=== PATIENT | male | born 1945 | race Caucasian/White ===

== ENCOUNTER 2021-11-29 03:55 | Inpatient (IN) | payer MEDICARE ==
[2021-11-29] VITALS (8 sets, daily range): BP systolic 71–111; BP diastolic 42–57
[~2021-11-29] VITALS: Ht 177.8 cm; Wt 86.9 kg
[2021-11-29] MEDS ORDERED: IV NORMAL SALINE 1000ML BAG 1,000 ML IV ONE ×2 (05:30→10:00)
[2021-11-29] MEDS ORDERED: DEXTROSE 50% 25 GM / 50ML DISP.SYRIN. IV ONE (05:30)
[2021-11-29] MEDS ORDERED: IV DEXTROSE 5% 250 ML BAG. IV PRN (05:45)
[2021-11-29] MEDS ORDERED: DEXTROSE 50% 25 GM / 50ML DISP.SYRIN. IV PRN (05:45)
[2021-11-29 07:46] LABS: BASO # 0.1 x10^3/uL (0.0-0.2); BASO % 1 % (0-3); EOS # 0.2 x10^3/uL (0.0-0.7); EOS % 2 % (0-3); HEMATOCRIT 28.2 % (39.0-53.0); HEMOGLOBIN 9.2 g/dL (13.0-17.5); LYMPH # 0.8 x10^3/uL (1.0-4.8); LYMPH % 8 % (24-48); MEAN CORPUSCULAR HEMOGLOBIN 33 pg (25-35); MEAN CORPUSCULAR HGB CONC 32 g/dL (31-37); MEAN CORPUSCULAR VOLUME 102 fL (79-100); MONO # 0.6 x10^3/uL (0.0-1.1); MONO % 6 % (0-9); NEUT # 7.6 x10^3/uL (1.8-7.7); NEUT % 83 % (31-73); PLATELET COUNT 204 x10^3/uL (140-400); RED BLOOD COUNT 2.76 x10^6/uL (4.30-5.70); RED CELL DISTRIBUTION WIDTH 13.6 % (11.5-14.5); WHITE BLOOD COUNT 9.2 x10^3/uL (4.0-11.0)
[2021-11-29 08:08] LABS: ALBUMIN 2.5 g/dL (3.4-5.0); ALBUMIN/GLOBULIN RATIO 0.9 (1.0-1.7); CALCIUM 7.9 mg/dL (8.5-10.1); CREATININE 3.2 mg/dL (0.7-1.3); POTASSIUM 4.6 mmol/L (3.5-5.1); TOTAL BILIRUBIN 0.2 mg/dL (0.2-1.0); TOTAL PROTEIN 5.2 g/dL (6.4-8.2)
--- NOTE | 2021-11-29 09:25 | PDOC2 ---
CONSULT Date of Consult Date of Consult DATE: 11/29/21 TIME: 09:25 Reason for Consult Reason for Consult: left hip fracture Referring Physician Referring Physician: Charlie Identification/Chief Complaint Chief Complaint left hip pain after a fall Source Source: Caregiver, Chart review, Patient History of Present Illness Reason for Visit: This 76-year-old man fell at home and was brought to [facility] emergency room. CT scan showed a hip fracture he was transferred to [facility] for further care. He is on Eliquis and took his last dose Saturday night about 5 or 6 pm. Surgery is generally postponed for at least 48 hours after last dose of Eliquis, and his daughter said they are familiar with that protocol because it has been held for prior surgeries. He is reasonably comfortable now, holding still in bed and with pain medications. He normally uses a wheelchair at home, and sometimes "cruises" along the halls in his home where the wheelchair will not go. He has multiple reasons that he has difficulty walking. 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 He had knee surgery in [place] and he does not think there is any retained hardware. He had a right ankle that I believe was injured and now has severe arthritis and I believe also has hardware from surgery. He has diabetic neuropathy with severe loss of sensation and it also makes it difficult for him to walk. He may have some neuropathy related to exposures in the . He also had bladder cancer and has had surgical treatment. He has chronic severe kidney insufficiency but absolutely refuses any dialysis. He is nearing the point where dialysis would otherwise be recommended. He has type 2 diabetes, normally on pills but he did have an episode of DKA a few years ago where he was on insulin for a time, and is now back to oral medications for his type 2 diabetes. He has atrial fibrillation I believe, and that is why he is on the Eliquis. He was told previously that he would be high risk for surgery, and I agree. Past Medical History Cardiovascular: AFIB CENTRAL NERVOUS SYSTEM: Periperal neuropathy Musculoskeletal: Osteoarthritis Renal/: Chronic renal failure (His current creatinine of 3.2 is relatively in the range of his recent creatinines. I believe he had a Cr of 2.7 at a recent appointment per his daughter. He is adamantly opposed to any dialysis.) Endocrine: Diabetes Past Surgical History Past Surgical History Bladder resection surgery with urostomy, left knee surgery, ankle surgery. Pacemaker (AICD), Arthroscopy (left knee and bilateral RTC repair), Other (bilateral ankle ORIF, urostomy with ileal conduit, bilateral carotid endarterectomy) Family History Family History Both of his parents had cancer, his father had prostate and his mother had ovarian cancer. He has a brother who recently had a stroke. Family History: Cancer Social History Social History He smokes a pipe daily, and has smoked for about 40 years. He drinks tequila every evening to help him get to sleep. He lives with his who is a retired PA or nurse practitioner, but she also has multiple sclerosis and is having some difficulty herself, using a quad cane now. She normally helps care for him. There has been some discussion among his family members about whether he will need long-term placement after this hospitalization. <1 pack per day ALCOHOL: other (He drinks tequila daily, he said it takes 3-4 shots of tequila to help him get to sleep) Lives: with Family Current Medications Current Medications Current Medications Sodium Chloride 1,000 ml @ 150 mls/hr 1X ONCE IV Last administered on 11/29/21at 05:30; Start 11/29/21 at 05:30; Stop 11/29/21 at 12:09 Dextrose (Dextrose 50%-Water Syringe) 25 gm PRN DAILY ONCE IV ; Start 11/29/21 at 05:30; Stop 11/29/21 at 05:31; Status UNV Dextrose (Dextrose 50%-Water Syringe) 12.5 gm PRN Q15MIN PRN IV SEE COMMENTS; Start 11/29/21 at 05:45 Dextrose (Iv Dextrose 5%) 250 ml PRN Q15MIN PRN IV SEE COMMENTS; Start 11/29/21 at 05:45 Allergies Allergies: Coded Allergies: No Known Drug Allergies (Unverified , 11/29/21) ROS Review of System Review of System 14 point ROS evaluated with pertinent positives noted per HPI Genitourinary: YES Other (urostomy) Neurological: Yes Gait Disturbance, Yes Impaired Coord/balance Physical Exam General: Alert, Cooperative HEENT: Atraumatic Lungs: Normal air movement Heart: Regular rate Abdomen: Soft Extremities: No edema Skin: No significant lesion Neuro: Normal speech, Other (Decreased light touch sensation both feet.) MUSCULOSKELETAL: Abnormal exam of right (The right ankle has gross enlargement, slight tenderness, consistent with osteoarthritis.), Abnormal exam of left (There is tenderness of the left hip. There is pain with any attempted motion. The skin is intact without ecchymosis. The extremity is severely shortened and externally rotated. Light touch sensation is decreased at the foot and toes but seems chronic. Capillary refill and pulses are intact without evidence of ischemia. Slight dorsiflexion and plantarflexion are possible without evidence of sciatic nerve injury. The knee is in varus alignment with surgical scars medially, and gross enlargement of the knee joint consistent with osteoarthritis.) Vitals VITALS Vital Signs Date Time Temp Pulse Resp B/P (MAP) Pulse Ox O2 Delivery O2 Flow Rate FiO2 11/29/21 06:25 59 93/48 (63) 11/29/21 03:30 97.4 20 97 Room Air 97.4 Labs Labs Laboratory Tests Test 11/29/21 05:26 11/29/21 07:20 11/29/21 07:30 Glucose (Fingerstick) 141 mg/dL (70-99) 133 mg/dL (70-99) White Blood Count 9.2 x10^3/uL (4.0-11.0) Red Blood Count 2.76 x10^6/uL (4.30-5.70) Hemoglobin 9.2 g/dL (13.0-17.5) Hematocrit 28.2 % (39.0-53.0) Mean Corpuscular Volume 102 fL (79-100) Mean Corpuscular Hemoglobin 33 pg (25-35) Mean Corpuscular Hemoglobin Concent 32 g/dL (31-37) Red Cell Distribution Width 13.6 % (11.5-14.5) Platelet Count 204 x10^3/uL (140-400) Neutrophils (%) (Auto) 83 % (31-73) Lymphocytes (%) (Auto) 8 % (24-48) Monocytes (%) (Auto) 6 % (0-9) Eosinophils (%) (Auto) 2 % (0-3) Basophils (%) (Auto) 1 % (0-3) Neutrophils # (Auto) 7.6 x10^3/uL (1.8-7.7) Lymphocytes # (Auto) 0.8 x10^3/uL (1.0-4.8) Monocytes # (Auto) 0.6 x10^3/uL (0.0-1.1) Eosinophils # (Auto) 0.2 x10^3/uL (0.0-0.7) Basophils # (Auto) 0.1 x10^3/uL (0.0-0.2) Sodium Level 139 mmol/L (136-145) Potassium Level 4.6 mmol/L (3.5-5.1) Chloride Level 108 mmol/L (98-107) Carbon Dioxide Level 17 mmol/L (21-32) Anion Gap 14 (6-14) Blood Urea Nitrogen 36 mg/dL (8-26) Creatinine 3.2 mg/dL (0.7-1.3) Estimated GFR (Cockcroft-Gault) 19.0 BUN/Creatinine Ratio 11 (6-20) Glucose Level 126 mg/dL (70-99) Lactic Acid Level 1.5 mmol/L (0.4-2.0) Calcium Level 7.9 mg/dL (8.5-10.1) Total Bilirubin 0.2 mg/dL (0.2-1.0) Aspartate Amino Transf (AST/SGOT) 20 U/L (15-37) Alanine Aminotransferase (ALT/SGPT) 23 U/L (16-63) Alkaline Phosphatase 89 U/L (46-116) HD-Oxo-X-Type Natriuretic Peptide 4015 pg/mL (0-449) Total Protein 5.2 g/dL (6.4-8.2) Albumin 2.5 g/dL (3.4-5.0) Albumin/Globulin Ratio 0.9 (1.0-1.7) Thyroid Stimulating Hormone (TSH) 4.490 uIU/mL (0.358-3.74) Laboratory Tests Test 11/29/21 05:26 11/29/21 07:20 11/29/21 07:30 Glucose (Fingerstick) 141 mg/dL (70-99) 133 mg/dL (70-99) White Blood Count 9.2 x10^3/uL (4.0-11.0) Red Blood Count 2.76 x10^6/uL (4.30-5.70) Hemoglobin 9.2 g/dL (13.0-17.5) Hematocrit 28.2 % (39.0-53.0) Mean Corpuscular Volume 102 fL (79-100) Mean Corpuscular Hemoglobin 33 pg (25-35) Mean Corpuscular Hemoglobin Concent 32 g/dL (31-37) Red Cell Distribution Width 13.6 % (11.5-14.5) Platelet Count 204 x10^3/uL (140-400) Neutrophils (%) (Auto) 83 % (31-73) Lymphocytes (%) (Auto) 8 % (24-48) Monocytes (%) (Auto) 6 % (0-9) Eosinophils (%) (Auto) 2 % (0-3) Basophils (%) (Auto) 1 % (0-3) Neutrophils # (Auto) 7.6 x10^3/uL (1.8-7.7) Lymphocytes # (Auto) 0.8 x10^3/uL (1.0-4.8) Monocytes # (Auto) 0.6 x10^3/uL (0.0-1.1) Eosinophils # (Auto) 0.2 x10^3/uL (0.0-0.7) Basophils # (Auto) 0.1 x10^3/uL (0.0-0.2) Sodium Level 139 mmol/L (136-145) Potassium Level 4.6 mmol/L (3.5-5.1) Chloride Level 108 mmol/L (98-107) Carbon Dioxide Level 17 mmol/L (21-32) Anion Gap 14 (6-14) Blood Urea Nitrogen 36 mg/dL (8-26) Creatinine 3.2 mg/dL (0.7-1.3) Estimated GFR (Cockcroft-Gault) 19.0 BUN/Creatinine Ratio 11 (6-20) Glucose Level 126 mg/dL (70-99) Lactic Acid Level 1.5 mmol/L (0.4-2.0) Calcium Level 7.9 mg/dL (8.5-10.1) Total Bilirubin 0.2 mg/dL (0.2-1.0) Aspartate Amino Transf (AST/SGOT) 20 U/L (15-37) Alanine Aminotransferase (ALT/SGPT) 23 U/L (16-63) Alkaline Phosphatase 89 U/L (46-116) XE-Lew-N-Type Natriuretic Peptide 4015 pg/mL (0-449) Total Protein 5.2 g/dL (6.4-8.2) Albumin 2.5 g/dL (3.4-5.0) Albumin/Globulin Ratio 0.9 (1.0-1.7) Thyroid Stimulating Hormone (TSH) 4.490 uIU/mL (0.358-3.74) Images Images Report reviewed and images independently reviewed. There is a CT scan only, no x-rays. There is enough information on the CT scan to forego plain hip x-rays. (Plain x-rays would be painful to take of the hip.) The CT does not include the left knee. I believe that I need x-rays of the knee, because a long intramedullary nail would be recommended, and there potentially could be modifications necessary depending on what surgery occurred at the knee remotely in [place]. Retained knee hardware or significant femoral deformity may change the surgical plan. PATIENT: KATHY LOMAX ACCOUNT: [id number] : 1945 LOCATION: ER AGE: 76 SEX: M EXAM STATUS: REG ER ORD. PHYSICIAN: STEF TOLENTINO MD REASON: Fall, lower back and left hip pain PROCEDURE: CT PELVIS WO CONTRAST CT LUMBAR SPINE WO, CT PELVIS WO History: Fall, lower back and left hip pain. Technique: Noncontrast CT was performed of the pelvis and lumbar spine. Multiplanar reconstructions were performed. Comparison: None Findings: Diffusely decreased osseous mineralization of the lumbar spine and pelvis. There are 5 nonrib- bearing lumbar type vertebral bodies. Normal alignment. No acute lumbar spine fracture. Unilateral right L5 pars articularis defect. Multilevel degenerative changes in the lumbar spine with facet hypertrophy and disc disease greatest at L4-L5 and L5-S1. No significant spinal canal stenosis. Mild bilateral neural foraminal stenosis at L4-L5. There is an acute mildly comminuted and displaced intertrochanteric fracture of the left femur. The femoral acetabular joints are normally aligned. The pubic rami are intact. Atherosclerotic calcification of the aorta. No aneurysm. Bilateral pelvic s idewall surgical clips. Prostatectomy changes. Large right renal cyst. Right midabdomen ostomy. Impression: 1. Acute intertrochanteric fracture of the left femur with mild displacement and comminution. 2. Degenerative changes without acute finding in the lumbar spine. Exposure: One or more of the following individualized dose reduction techniques were utilized for this examination: 1. Automated exposure control 2. Adjustment of the mA and/or kV according to patient size 3. Use of iterative reconstruction technique. Electronically signed by: Bandar Patrick MD (11/29/2021 2:19 AM) [facility] DICTATED AND SIGNED BY: BANDAR PATRICK MD DATE: 11/29/21207 CC: STEF TOLENTINO MD; PCP,UNKNOWN Assessment/Plan Assessment/Plan S72.142A Displaced intertrochanteric fracture of left femur, initial encounter for closed fracture. There is extension into the subtrochanteric zone. We discussed operative versus nonoperative management. Despite his extensive medical history and significant comorbidities, the alternative of bed rest is likely more dangerous and would likely be a sentence. Bedrest is generally not well tolerated and has high risks of continued pain, bedsores, pneumonia, and blood clots. With diabetes, smoking, and renal insufficiency, the risks of infection and nonunion and other surgical risks are increased and I discussed those with him and his family. I do recommend a long intramedullary nail, partl y because of the subtrochanteric extension but also because of the probable delayed healing of this fracture with his medical comorbidities. Risks of intramedullary nailing would include malunion, nonunion or hardware failure requiring additional surgery, bleeding, blood clots, neurovascular injury, or other potential surgical or anesthetic complications. We discussed all of those risks, and in detail discussed hardware failure and nail breakage. I explained that occasionally (but rarely) patients can during surgery and I do not expect that, but should that complication occur, he would not likely suffer. He agrees that he would rather proceed with surgery and take whatever risks necessary because continuing with the current pain indefinitely would be intolerable and he stated that he wouldn't be worried about dying during surgery. All of his questions about surgery were answered and he desires to proceed. His family participated in the decision making and I discussed some of his daughter's questions as well. I agree long-term placement for him may be the best option. He has consultations with cardiology and renal, and an echocardiogram is planned. The ejection fraction and other information from the echocardiogram will help to stratify his risks for surgery in a more detailed fashion. Due to the Eliquis timing, I recommend surgery wait until at least Saturday so that he will be greater than 48 hours from his last dose. I will plan for Saturday morning if that is available. The consent will be for left hip intramedullary nail, and I plan a [place] long gamma nail. LE LR MD Nov 29, 2021 09:25
[2021-11-29] MEDS ORDERED: oxyCODONE/APAP 5/325 1 TAB TABLET PO PRN ×2 (09:45→15:00)
[2021-11-29] MEDS ORDERED: fentaNYL PF VIAL 100 MCG/2 ML VIAL IVP PRN (09:45)
--- NOTE | 2021-11-29 10:02 | PDOC2 ---
TYSHAWN JASSO RADIOLOGY PRACTITIONER ASSISTANT 11/29/21 1002: CARDIAC CONSULT DATE OF CONSULT Date of Consult DATE: 11/29/21 TIME: 09:39 REASON FOR CONSULT Reason for Consult: Hypotension, CHF REFERRING PHYSICIAN Referring Physician: Charlie SOURCE Source: Chart review, Patient HISTORY OF PRESENT ILLNESS HISTORY OF PRESENT ILLNESS This is a pleasant 76 yo male admitted for fall. He was initially at [facility] ED and tranferred to [facility] for ortho evaluation. Further imaging noted with left proximal femur fracture. He was putting his pajamas at midnight when he fell. No associated chest pain, SOA or dizziness. Reported no history of heart surgery but has cardiomyopathy and has AICD. He typically sees Juma Briseno at [facility]. He has hx of of PAFIB as well and last dose of eliquis was last night. No associated syncope or seizures. Consult is for CHF which he is clinically compensated PAST MEDICAL HISTORY Cardiovascular: AFIB, CHF, HTN, Hyperlipidemia, Other (cardiomyopathy, carotid artery disease) Pulmonary: COPD CENTRAL NERVOUS SYSTEM: CVA, Periperal neuropathy, TIA GI: Constipation Heme/Onc: Anemia NOS, Cancer (bladder) Hepatobiliary: No pertinent hx Psych: Other (insomnia uses alcohol to go to sleep) Musculoskeletal: low back pain, Osteoarthritis Rheumatologic: No pertinent hx Infectious disease: No pertinent hx ENT: No pertinent hx Renal/: Chronic renal insuff, Bladder Ca. Endocrine: Diabetes Dermatology: No pertinent hx PAST SURGICAL HISTORY Past Surgical History: Pacemaker (AICD), Arthroscopy (left knee and bilateral RTC repair), Other (bilateral ankle ORIF, urostomy with ileal conduit, bilateral carotid endarterectomy) FAMILY HISTORY Family History noncontributory to CV SOCIAL HISTORY Smoke: <1 pack per day (50 yrs uses pipe) ALCOHOL: heavy (3-4 shots of tequila nightly using it for insomnia in the last yr) Drugs: Other (uses CBD for aches) Lives: with Family CURRENT MEDICATIONS CURRENT MEDICATIONS Current Medications Medications (Trade) Dose Ordered Sig/Molina Route PRN Reason Start Time Stop Time Status Last Admin Dose Admin Sodium Chloride 1,000 ml @ 150 mls/hr 1X ONCE IV 11/29/21 05:30 11/29/21 12:09 11/29/21 05:30 ALLERGIES ALLERGIES: Coded Allergies: No Known Drug Allergies (Unverified , 11/29/21) ROS Review of System 14 point ROS evaluated with pertinent positives noted per HPI PHYSICAL EXAM General: Alert, Oriented X3, Cooperative, No acute distress HEENT: Atraumatic, Mucous membr. moist/pink Lungs: Clear to auscultation, Normal air movement Heart: Regular rate (SR with intermittent atrial pacing) Abdomen: Soft, No tenderness, Other (truncal obesity) Extremities: No cyanosis, No edema, Other (LLE shorter millicent RLE) Skin: No breakdown, No significant lesion Neuro: Normal speech, Sensation intact Psych/Mental Status: Mental status NL, Mood NL MUSCULOSKELETAL: Osteoarthritic changes both hands VITALS/I&O VITALS/I&O: Vital Signs Date Time Temp Pulse Resp B/P (MAP) Pulse Ox O2 Delivery O2 Flow Rate FiO2 11/29/21 08:30 Room Air 11/29/21 07:00 97.5 60 18 103/50 (67) 96 97.5 I & O 11/28/21 11/28/21 11/29/21 15:00 23:00 07:00 Intake Total 0 ml Balance 0 ml LABS Lab: Laboratory Tests Test 11/29/21 05:26 11/29/21 07:20 11/29/21 07:30 Glucose (Fingerstick) 141 mg/dL (70-99) H 133 mg/dL (70-99) H White Blood Count 9.2 x10^3/uL (4.0-11.0) Red Blood Count 2.76 x10^6/uL (4.30-5.70) L Hemoglobin 9.2 g/dL (13.0-17.5) L Hematocrit 28.2 % (39.0-53.0) L Mean Corpuscular Volume 102 fL (79-100) H Mean Corpuscular Hemoglobin 33 pg (25-35) Mean Corpuscular Hemoglobin Concent 32 g/dL (31-37) Red Cell Distribution Width 13.6 % (11.5-14.5) Platelet Count 204 x10^3/uL (140-400) Neutrophils (%) (Auto) 83 % (31-73) H Lymphocytes (%) (Auto) 8 % (24-48) L Monocytes (%) (Auto) 6 % (0-9) Eosinophils (%) (Auto) 2 % (0-3) Basophils (%) (Auto) 1 % (0-3) Neutrophils # (Auto) 7.6 x10^3/uL (1.8-7.7) Lymphocytes # (Auto) 0.8 x10^3/uL (1.0-4.8) L Monocytes # (Auto) 0.6 x10^3/uL (0.0-1.1) Eosinophils # (Auto) 0.2 x10^3/uL (0.0-0.7) Basophils # (Auto) 0.1 x10^3/uL (0.0-0.2) Sodium Level 139 mmol/L (136-145) Potassium Level 4.6 mmol/L (3.5-5.1) Chloride Level 108 mmol/L (98-107) H Carbon Dioxide Level 17 mmol/L (21-32) L Anion Gap 14 (6-14) Blood Urea Nitrogen 36 mg/dL (8-26) H Creatinine 3.2 mg/dL (0.7-1.3) H Estimated GFR (Cockcroft-Gault) 19.0 BUN/Creatinine Ratio 11 (6-20) Glucose Level 126 mg/dL (70-99) H Lactic Acid Level 1.5 mmol/L (0.4-2.0) Calcium Level 7.9 mg/dL (8.5-10.1) L Total Bilirubin 0.2 mg/dL (0.2-1.0) Aspartate Amino Transferase (AST) 20 U/L (15-37) Alanine Aminotransferase (ALT) 23 U/L (16-63) Alkaline Phosphatase 89 U/L (46-116) DJ-Wfv-T-Type Natriuretic Peptide 4015 pg/mL (0-449) H Total Protein 5.2 g/dL (6.4-8.2) L Albumin 2.5 g/dL (3.4-5.0) L Albumin/Globulin Ratio 0.9 (1.0-1.7) L Thyroid Stimulating Hormone (TSH) 4.490 uIU/mL (0.358-3.74) H Laboratory Tests 11/29/21 07:30 Laboratory Tests 11/29/21 07:30 ASSESSMENT/PLAN ASSESSMENT/PLAN 1. Traumatic mechanical fall: no associated syncope/presyncopal symptoms 2. Left intertrochanteric femoral fracture 3. Presumed NICM: compensated 4. AICD in situ: medtronic. SR with intermittent atrial pacing 5. Possible hx of tachy cali syndrome 6. PAFIB: last dose of eliquis yesterday evening 7. Hypotension: presntly hypotensive 8. Hyperlipidemia 9. DM2 with distal polyneuropathy 10. ZACHARY on CKD: daughter reported Cr in the upper 1s 11. Hx of carotid artery disease and S/P bilateral CEA 12. Hx of bladder CA in remission: urostomy in place 13. Possible chronic UTI 14. CBD uise 15. Heavy ETOH misuse: about 4 shots of tequila nightly using it for insomnia 16. Anemia 17. Chronic systolic CHF: clinically compensated 18. suspect COPD: controlled 19. Hx of CHRSITY: does not use his CPAP 20. Hx of CVA Recommendations 1. Will need left hip repair. Will obtain TTE 2. Preop cardiac eval with moderate to high risk for perioperative CV events for noncardiac surgery 3. Avoid high rate IVF to avoid CHF decompensation 4. Hold eliquis and ASA. Repeat H/H would recommend trannsfusion if Hgb is below 9 5. Clarify med list hold BP meds for now. 6. Consult nephrology 7. Supportive care FAUSTINO DOHERTY MD 11/29/21 1545: CARDIAC CONSULT ASSESSMENT/PLAN ASSESSMENT/PLAN Patient seen and examined I agree with our nurse practitioners assessment and plan. Traumatic mechanical fall: no associated syncope/presyncopal symptoms Left intertrochanteric femoral fracture. As per Ortho. Moderate to moderately high risk for surgery from a cardiac viewpoint. Echo pending. Presumed NICM: compensated. Echo pending. AICD in situ: medtronic. SR with intermittent atrial pacing Possible hx of tachy cali syndrome PAFIB: last dose of eliquis yesterday evening Hypotension Hyperlipidemia DM2 with distal polyneuropathy ZACHARY on CKD: Renal consult. Hx of carotid artery disease and S/P bilateral CEA Hx of bladder CA in remission: urostomy in place Heavy ETOH misuse Anemia Chronic systolic CHF: clinically compensated COPD: controlled Hx of CHRISTY: does not use his CPAP Hx of CVA TYSHAWN JASSO APRN Nov 29, 2021 10:02 FAUSTINO DOHERTY MD Nov 29, 2021 15:45
[2021-11-29] MEDS ORDERED: MAGNESIUM SULFATE 2GM 50 ML IV ONE (11:15)
--- NOTE | 2021-11-29 12:12 | NUR ---
SW following. Discussed with RN, pt from home with , room air, NPO. Ortho and Cardiology following. Eliquis being held prior to surgery, possible surgery tomorrow or Saturday. SW will continue to follow.
[2021-11-29] MEDS ORDERED: chlordiazePOXIDE HCL 25 MG CAPSULE PO PRN ×2 (12:30)
--- NOTE | 2021-11-29 12:52 | PDOC2 ---
CONSULT Date of Consult Date of Consult DATE: 11/29/21 TIME: 12:26 Reason for Consult Reason for Consult: ZACHARY on CKD Source Source: Caregiver, Chart review, Patient History of Present Illness Reason for Visit: 76 yo CM admitted for fall. He was initially at [facility] ED and tranferred to [facility] for ortho evaluation. Further imaging noted with left proximal femur fracture. He reports his leg goy caught in the sweats while was putting it on and he fell . No associated chest pain, SOA or dizziness. No associated syncope or seizures. He is on Eliquis . He has a Dx of CKD stage [address] Joe at [facility] ,had an appt with her approx 3 weeks back . Creatinine was in 3's , per daughter Pt's wufe reports that it was not concerning to Dr Joe ad no changes were made He was Dx with Bladder cancer approx a year ago . Currently in remission He had loopogram done on 11/28/21 at [facility] - official report not available but was told that Urologist will be happy with the results . He was scheduled to get CT with Contrast was not done due to elevated Cr 2.7 .He reports normal UOP in the bag, changes it every 2-3 days . Denies N/V/D, NO BM for past 4 days. Denies F/C . Appetite was good - went out to eat with his daughter yesterday after the procedure . Fluid intake is marginal Past Medical History Past Medical History Significant for atrial fibrillation, congestive heart failure, hypertension, hyperlipidemia, cardiomyopathy, carotid artery disease, chronic obstructive pulmonary disease, cerebrovascular accident, peripheral neuropathy and TIAs. He is also known to have chronic constipation. He has bladder cancer, status post radical cystectomy and urostomy. He also has anemia, chronic kidney disease. He also complained of insomnia for which he drinks 3 shots of tequila according to him for sleep. He also has history of diabetes mellitus and has diabetic peripheral neuropathy. Cardiovascular: AFIB, CHF, HTN, Hyperlipidemia, Other (cardiomyopathy, carotid artery disease) Pulmonary: COPD CENTRAL NERVOUS SYSTEM: CVA, Periperal neuropathy, TIA GI: Constipation Heme/Onc: Anemia NOS, Cancer (bladder) Hepatobiliary: No pertinent hx Psych: Other (insomnia uses alcohol to go to sleep) Musculoskeletal: low back pain, Osteoarthritis Rheumatologic: No pertinent hx Infectious disease: No pertinent hx ENT: No pertinent hx Renal/: Chronic renal insuff, Bladder Ca. Endocrine: Diabetes Dermatology: No pertinent hx Past Surgical History Past Surgical History Significant for pacemaker and AICD placement, left knee arthroscopic surgery and bilateral rotator cuff repair and bilateral ankle surgery. He has a urostomy with ileal conduit, bilateral carotid endarterectomy. Past Surgical History: Pacemaker (AICD), Arthroscopy (left knee and bilateral RTC repair), Other (bilateral ankle ORIF, urostomy with ileal conduit, bilateral carotid endarterectomy) Social History Social History He lives at home with his , has been a smoker for over 50 years, using pipe. He drinks 3-4 shots of tequila nightly using it for insomnia in the last year. He uses CBD for aches. 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 He sustained multiple damages because he was landing as from the parachute in the ground, sustaining multiple damages to his both knees and ankle joint. <1 pack per day (50 yrs uses pipe) ALCOHOL: heavy (3-4 shots of tequila nightly using it for insomnia in the last yr) Drugs: Other (uses CBD for aches) Lives: with Family Current Medications Current Medications Current Medications Sodium Chloride 1,000 ml @ 150 mls/hr 1X ONCE IV Last administered on 11/29/21at 05:30; Start 11/29/21 at 05:30; Stop 11/29/21 at 12:09; Status DC Dextrose (Dextrose 50%-Water Syringe) 25 gm PRN DAILY ONCE IV ; Start 11/29/21 at 05:30; Stop 11/29/21 at 05:31; Status UNV Dextrose (Dextrose 50%-Water Syringe) 12.5 gm PRN Q15MIN PRN IV SEE COMMENTS; Start 11/29/21 at 05:45 Dextrose (Iv Dextrose 5%) 250 ml PRN Q15MIN PRN IV SEE COMMENTS; Start 11/29/21 at 05:45 Oxycodone/ Acetaminophen (Percocet 5/325) 1 tab PRN Q4HRS PRN PO MODERATE PAIN; Start 11/29/21 at 09:45 Fentanyl Citrate (Fentanyl 2ml Vial) 50 mcg PRN Q1HR PRN IVP PAIN Last administered on 11/29/21at 11:46; Start 11/29/21 at 09:45 Oxycodone/ Acetaminophen (Percocet 5/325) 2 tab PRN Q4HRS PRN PO SEVERE PAIN; Start 11/29/21 at 09:45 Sodium Chloride 1,000 ml @ 100 mls/hr 1X ONCE IV ; Start 11/29/21 at 10:00; Stop 11/29/21 at 19:59 Magnesium Sulfate 50 ml @ 25 mls/hr 1X ONCE IV ; Start 11/29/21 at 11:15; Stop 11/29/21 at 13:14 Allergies Allergies: Coded Allergies: No Known Drug Allergies (Unverified , 11/29/21) ROS Review of System As per HPI rest of the ROS is negative Physical Exam Physical Exam General: Alert, Oriented X3, Cooperative, No acute distress HEENT: Atraumatic, Mucous membr. moist/pink nECK sUPPLE Lungs: Clear to auscultation, Normal air movement Heart: SR Abdomen: Soft, No tenderness, Extremities: No cyanosis, No edema, severe arthritis Both Knee with swelling , chronic Skin: , No rash Neuro: Normal speech, grossly normal Psych/Mental Status: stable, cooperative Ostomy + Vital Signs Vital Signs Date Time Temp Pulse Resp B/P (MAP) Pulse Ox O2 Delivery O2 Flow Rate FiO2 11/29/21 11:00 97.5 68 16 97/48 (64) 95 Room Air 97.5 Assessment & Plan ZACHARY - Dehydration /Vasomotor, Maintain hydration . K normal, Co2 low- if persistent switCh to Bicarb gtt . Strict I/O, Avoid nephrotoxins CKD stage 3 B - Follows with Dr Joe, Flame Cutting Supervisor at [facility] . Prior Cr baseline high 1's to 2'2 . Recent appt was approx 3 weeks back with Cr ? 3 .0 per daughter . Obtain Records from [facility] and [facility] Hx of Bladder cancer s/p Cystectomy , has Urostomy . In remission. Follows with at [facility] ; Loopogram yesterday HTN currently Hypotensive Traumatic mechanical fall: no associated syncope/presyncopal symptoms- Left intertrochanteric femoral fracture- Ortho consulted Anemia- Monitor , MAY TREND DOWN DM2 with distal polyneuropathy NICM: compensated AICD in situ: medtronic. SR with intermittent atrial pacing PAFIB: last dose of eliquis yesterday evening Hx of carotid artery disease and S/P bilateral CEA CBD use Heavy ETOH misuse: about 4 shots of tequila nightly using it for insomnia Hx of CHRISTY: does not use his CPAP Hx of CVA Labs Labs Laboratory Tests Test 11/29/21 05:26 11/29/21 07:20 11/29/21 07:30 11/29/21 10:56 Glucose (Fingerstick) 141 mg/dL (70-99) 133 mg/dL (70-99) 126 mg/dL (70-99) White Blood Count 9.2 x10^3/uL (4.0-11.0) Red Blood Count 2.76 x10^6/uL (4.30-5.70) Hemoglobin 9.2 g/dL (13.0-17.5) Hematocrit 28.2 % (39.0-53.0) Mean Corpuscular Volume 102 fL (79-100) Mean Corpuscular Hemoglobin 33 pg (25-35) Mean Corpuscular Hemoglobin Concent 32 g/dL (31-37) Red Cell Distribution Width 13.6 % (11.5-14.5) Platelet Count 204 x10^3/uL (140-400) Neutrophils (%) (Auto) 83 % (31-73) Lymphocytes (%) (Auto) 8 % (24-48) Monocytes (%) (Auto) 6 % (0-9) Eosinophils (%) (Auto) 2 % (0-3) Basophils (%) (Auto) 1 % (0-3) Neutrophils # (Auto) 7.6 x10^3/uL (1.8-7.7) Lymphocytes # (Auto) 0.8 x10^3/uL (1.0-4.8) Monocytes # (Auto) 0.6 x10^3/uL (0.0-1.1) Eosinophils # (Auto) 0.2 x10^3/uL (0.0-0.7) Basophils # (Auto) 0.1 x10^3/uL (0.0-0.2) Sodium Level 139 mmol/L (136-145) Potassium Level 4.6 mmol/L (3.5-5.1) Chloride Level 108 mmol/L (98-107) Carbon Dioxide Level 17 mmol/L (21-32) Anion Gap 14 (6-14) Blood Urea Nitrogen 36 mg/dL (8-26) Creatinine 3.2 mg/dL (0.7-1.3) Estimated GFR (Cockcroft-Gault) 19.0 BUN/Creatinine Ratio 11 (6-20) Glucose Level 126 mg/dL (70-99) Lactic Acid Level 1.5 mmol/L (0.4-2.0) Calcium Level 7.9 mg/dL (8.5-10.1) Magnesium Level 1.6 mg/dL (1.8-2.4) Total Bilirubin 0.2 mg/dL (0.2-1.0) Aspartate Amino Transf (AST/SGOT) 20 U/L (15-37) Alanine Aminotransferase (ALT/SGPT) 23 U/L (16-63) Alkaline Phosphatase 89 U/L (46-116) AR-Qqd-J-Type Natriuretic Peptide 4015 pg/mL (0-449) Total Protein 5.2 g/dL (6.4-8.2) Albumin 2.5 g/dL (3.4-5.0) Albumin/Globulin Ratio 0.9 (1.0-1.7) Thyroid Stimulating Hormone (TSH) 4.490 uIU/mL (0.358-3.74) Laboratory Tests Test 11/29/21 05:26 11/29/21 07:20 11/29/21 07:30 11/29/21 10:56 Glucose (Fingerstick) 141 mg/dL (70-99) 133 mg/dL (70-99) 126 mg/dL (70-99) White Blood Count 9.2 x10^3/uL (4.0-11.0) Red Blood Count 2.76 x10^6/uL (4.30-5.70) Hemoglobin 9.2 g/dL (13.0-17.5) Hematocrit 28.2 % (39.0-53.0) Mean Corpuscular Volume 102 fL (79-100) Mean Corpuscular Hemoglobin 33 pg (25-35) Mean Corpuscular Hemoglobin Concent 32 g/dL (31-37) Red Cell Distribution Width 13.6 % (11.5-14.5) Platelet Count 204 x10^3/uL (140-400) Neutrophils (%) (Auto) 83 % (31-73) Lymphocytes (%) (Auto) 8 % (24-48) Monocytes (%) (Auto) 6 % (0-9) Eosinophils (%) (Auto) 2 % (0-3) Basophils (%) (Auto) 1 % (0-3) Neutrophils # (Auto) 7.6 x10^3/uL (1.8-7.7) Lymphocytes # (Auto) 0.8 x10^3/uL (1.0-4.8) Monocytes # (Auto) 0.6 x10^3/uL (0.0-1.1) Eosinophils # (Auto) 0.2 x10^3/uL (0.0-0.7) Basophils # (Auto) 0.1 x10^3/uL (0.0-0.2) Sodium Level 139 mmol/L (136-145) Potassium Level 4.6 mmol/L (3.5-5.1) Chloride Level 108 mmol/L (98-107) Carbon Dioxide Level 17 mmol/L (21-32) Anion Gap 14 (6-14) Blood Urea Nitrogen 36 mg/dL (8-26) Creatinine 3.2 mg/dL (0.7-1.3) Estimated GFR (Cockcroft-Gault) 19.0 BUN/Creatinine Ratio 11 (6-20) Glucose Level 126 mg/dL (70-99) Lactic Acid Level 1.5 mmol/L (0.4-2.0) Calcium Level 7.9 mg/dL (8.5-10.1) Magnesium Level 1.6 mg/dL (1.8-2.4) Total Bilirubin 0.2 mg/dL (0.2-1.0) Aspartate Amino Transf (AST/SGOT) 20 U/L (15-37) Alanine Aminotransferase (ALT/SGPT) 23 U/L (16-63) Alkaline Phosphatase 89 U/L (46-116) HW-Xfg-Z-Type Natriuretic Peptide 4015 pg/mL (0-449) Total Protein 5.2 g/dL (6.4-8.2) Albumin 2.5 g/dL (3.4-5.0) Albumin/Globulin Ratio 0.9 (1.0-1.7) Thyroid Stimulating Hormone (TSH) 4.490 uIU/mL (0.358-3.74) Review All relevant outside records, renal labs, imaging studies, telemetry/EKG's were reviewed. Images Images CxR - No acute CP process CT Lumbar spine /Pevis w/o Contrast Acute Intertrochentric Fracture of Lt Femur with Mild displacement and Comminution ONOFRE SANCHEZ MD Nov 29, 2021 12:51
[2021-11-29] MEDS ORDERED: PERFLUTREN PROTEIN-A MICROSPHR 0.22 MG/ML 3 ML VIAL. IV ONE ×2 (13:15→13:30)
[2021-11-29] MEDS ORDERED: BUDE10.2 IH (13:59)
[2021-11-29] MEDS ORDERED: SACU1TAB4 PO (13:59)
[2021-11-29] MEDS ORDERED: AMIO200T53 PO (13:59)
[2021-11-29] MEDS ORDERED: CANN100S PO (13:59)
[2021-11-29] MEDS ORDERED: PANT40TA77 PO (13:59)
[2021-11-29] MEDS ORDERED: CHOL10004 PO (13:59)
[2021-11-29] MEDS ORDERED: SPIR25TA5 PO (13:59)
[2021-11-29] MEDS ORDERED: FLUT16SP NS (13:59)
[2021-11-29] MEDS ORDERED: PROAIR RESPICL90 MCG IH (13:59)
[2021-11-29] MEDS ORDERED: DOCU100C28 PO (13:59)
[2021-11-29] MEDS ORDERED: GLIP10TA13 PO (13:59)
[2021-11-29] MEDS ORDERED: CRESTOR40 MG PO (13:59)
[2021-11-29] MEDS ORDERED: ZINC100T PO (13:59)
[2021-11-29] MEDS ORDERED: ASPI-630 PO (13:59)
[2021-11-29] MEDS ORDERED: ACET325T21 PO (13:59)
[2021-11-29] MEDS ORDERED: LORA10TA3 PO (13:59)
[2021-11-29] MEDS ORDERED: APIX5TAB PO (13:59)
[2021-11-29] MEDS ORDERED: BISO10TA8 PO (13:59)
--- NOTE | 2021-11-29 14:18 | HP ---
DATE OF SERVICE: 11/29/2021 ADMIT DATE: 11/29/2021 HISTORY OF PRESENT ILLNESS: The patient is a 76-year-old male patient who presented to the Emergency Room of [facility] with mechanical fall. The patient stated that he was getting into my pajamas and fell on the left side and developed severe pain in his left hip joint and stated he cannot put weight on it. It is too painful. He is normally followed at the [facility] and has also a automatic grinder operator for him on a regular basis at the [facility]. He was extensively investigated in the Emergency Room, has lab work as well as imaging studies. His lab work showed that he has normochromic normocytic anemia. His chemistry showed his BUN is 36, creatinine 2.1, and his prothrombin time, INR and APTT was within normal range. Urinalysis was essentially showed that he has 20-40 wbc's, moderate amount of leukocyte esterase and many bacteria. Toxic screen was positive for cannabinoids and ethyl alcohol. His imaging studies showed that the patient has CT scan of the pelvis showed that the patient has acute intertrochanteric fracture of the left femur with mild displacement and comminution. He has also degenerative changes without acute finding in the lumbar spine. His CT scan of the lumbar spine were unremarkable and a chest x-ray showed no acute cardiopulmonary process. The patient was transferred to [facility] to consult the orthopedic surgeon as well as fan mail editor as well as automatic grinder operator given that he has acute on chronic kidney failure and is known to have nonischemic cardiomyopathy for which he has an AICD. PAST MEDICAL HISTORY: Significant for atrial fibrillation, congestive heart failure, hypertension, hyperlipidemia, cardiomyopathy, carotid artery disease, chronic obstructive pulmonary disease, cerebrovascular accident, peripheral neuropathy and TIAs. He is also known to have chronic constipation. He has bladder cancer, status post radical cystectomy and urostomy. He also has anemia, chronic kidney disease. He also complained of insomnia for which he drinks 3 shots of tequila according to him for sleep. He also has history of diabetes mellitus and has diabetic peripheral neuropathy. PAST SURGICAL HISTORY: Significant for pacemaker and AICD placement, left knee arthroscopic surgery and bilateral rotator cuff repair and bilateral ankle surgery. He has a urostomy with ileal conduit, bilateral carotid endarterectomy. FAMILY HISTORY: Noncontributory. SOCIAL HISTORY: He lives at home with his , has been a smoker for over 50 years, using pipe. He drinks 3-4 shots of tequila nightly using it for insomnia in the last year. He uses CBD for aches. 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 He sustained multiple damages because he was landing as from the parachute in the ground, sustaining multiple damages to his both knees and ankle joint. ALLERGIES: He has no known drug allergies. MEDICATIONS: He is currently on the following medications: He is on Eliquis 5 mg twice a day. He took his last dose yesterday before he fell. Unfortunately, we do not have the whole list of his home medication yet. PHYSICAL EXAMINATION: GENERAL: On arrival to the Emergency Room, the patient looked well and was clearly in no apparent respiratory distress, pale, not jaundiced, cyanosed or thyromegaly. No jugular venous distention. No lower limb edema. VITAL SIGNS: His heart rate was 60, blood pressure was 93/28, temperature was 98.4, respiratory rate was 18 and oxygen saturation was 94%. HEAD, EYES, EARS, NOSE AND THROAT: Normocephalic, atraumatic. NECK: Supple. HEART: Showed normal first and second heart sounds. No gallop, rub or murmur. CHEST: Clear to auscultation. No crepitation or rhonchi. ABDOMEN: Distended, soft with a colostomy bag in the left lower quadrant. The right lower quadrant, there is no guarding or rigidity. No organomegaly. All hernial orifice intact. Bowel sounds normal. NEUROLOGIC: He is awake, alert, responding appropriately. Cranial nerves intact. He moves upper extremities without difficulty. His left lower extremity is shortened and externally rotated. LABORATORY DATA: Showed a white cell count 6700, hemoglobin 10.3, hematocrit 31.5, MCV 104 and platelet count 209,000 with normal manual differential. His chemistry showed a serum sodium 134, potassium 4.5, chloride 104, bicarbonate 18, anion gap of 12, BUN 36, creatinine 3.1. Estimated GFR was 19 mL per minute. His glucose was 113, calcium was 8.1, magnesium was 1.9. Total bilirubin, AST, ALT, alkaline phosphatase were normal. His CK was 162. Troponin I high sensitivity was only 23. Beta natriuretic peptide was 4400. Total protein 5.6, albumin was 2.6. His prothrombin time was 11.6, INR 1.1, APTT was 31. Urinalysis showed the urine was yellow, cloudy with a pH 6.5, specific gravity of 1.020. There is small amount of protein. The urine was negative for glucose, ketones, blood, nitrite and leukocyte. There was moderate amount of leukocyte esterase, 3-5 rbc's, 20-40 wbc's and many bacteria. His toxic screen was positive for cannabinoids as well as a ethyl alcohol. ASSESSMENT AND PLAN: In summary, this is a 76-year-old male patient who fell, sustaining left intertrochanteric femur fracture with some displacement. He has a multitude of medical problems includin. Acute on chronic kidney injury. 2. Hypotension, likely multifactorial, possibly because of bleeding as he continues to use his Eliquis up until yesterday. 3. He has also possible nonischemic cardiomyopathy for which he has an AICD. 4. Paroxysmal atrial fibrillation for which he is on Eliquis. 5. Hyperlipidemia. 6. Type 2 diabetes mellitus. 7. Carotid artery disease, status post bilateral carotid endarterectomy. 8. Bladder cancer, status post cystectomy and urostomy. 9. Possible urinary tract infection. 10. Heavy alcohol use. He takes up to 3-4 shots of tequila every night for insomnia. He has normochromic normocytic anemia. 11. Chronic systolic congestive heart failure, seems to be clinically well compensated. 12. Suspected chronic obstructive pulmonary disease, history of obstructive sleep apnea; however, the patient is not on any CPAP. I have consulted the fan mail editor and the automatic grinder operator as well as the orthopedic surgeon. I have also given his chronic obstructive pulmonary disease and obstructive sleep apnea, I would also consult the hat brim curler. We will repeat all his lab work this morning and we will transfuse him if his hemoglobin is 7 or less than 7. Meanwhile, we will contact his to get the list of all of his medication. SAROJ ADAMS: Babs TID: [id number]
--- NOTE | 2021-11-29 15:33 | PDOC ---
Provider Note Date of Service: DATE: 11/29/21 TIME: 15:30 Provider Note I reviewed the knee x-rays. The report is not yet available. There is no severe femoral angular deformity. There is severe osteoarthritis at the knee. There is severe osteopenia with "eggshell thin" appearing femoral cortices. There is no retained hardware. No change to the surgical plan other than extra care not to perforate this thin femoral cortex. Due to the thin cortices and osteopenia, he is at risk of additional fractures during or after surgery. Justifications for Admission Other Justification LE LR MD Nov 29, 2021 15:32
--- NOTE | 2021-11-29 16:15 | CONS ---
DATE OF CONSULTATION: 11/29/2021 PULMONARY CONSULTATION ATTENDING PHYSICIAN: Anel Guerra MD REASON FOR CONSULTATION: Sleep apnea, COPD and preoperative clearance. HISTORY OF PRESENT ILLNESS: The patient is a 76-year-old male who has a BMI of 27.5. He fell and had fractured his left proximal femur. He is scheduled for surgery this Saturday. The patient has a history of cardiomyopathy and has AICD. He also has smoked for about 50 years, mostly cigarettes, but Hyppes as well. The patient states he has history of sleep apnea, but has not been able to use the CPAP. He states his legs are very uncomfortable and he has to keep moving and he cannot keep the CPAP mask on. He has exertional dyspnea is not on home oxygen. Denies any cough, fever, chills, chest pains. His chest x-ray done on admission did not reveal any acute infiltrates. I have been asked to see him for further evaluation. PAST MEDICAL HISTORY: History of atrial fibrillation, CHF, hypertension, hyperlipidemia, cardiomyopathy, has AICD. CVA, peripheral neuropathy, sleep apnea and suspected COPD, chronic renal insufficiency. PAST SURGICAL HISTORY: Pacemaker, arthroscopy and other surgeries as listed. ALLERGIES: None. MEDICATIONS: Reviewed as listed in the [facility]AD. He is not on bronchodilators. REVIEW OF SYSTEMS: Twelve-point review of system obtained. Pertinent positives discussed in my present illness, otherwise noncontributory. All systems that were negative were reviewed as well. SOCIAL HISTORY: Smoker for 50 years. Has not quit. FAMILY HISTORY: Noncontributory to lungs. PHYSICAL EXAMINATION: VITAL SIGNS: Reviewed. Pulse ox 95% on room air. Afebrile. Blood pressure is stable. NECK: Supple. LUNGS: With diminished breath sounds. CARDIOVASCULAR: With a regular rate. ABDOMEN: Soft, obese. EXTREMITIES: With ecchymosis in the left knee and there is some swelling as well. There is trace pitting edema. LABORATORY DATA: Reviewed. White cell count 9.2, hemoglobin 8.4, which was 9.2 before and platelets are 204. BUN 36 and creatinine 3.2. TSH 4.4. IMPRESSION: 1. The patient with 50 years of tobaccoism. Suspect underlying COPD. He does have exertional dyspnea. He is not on current bronchodilators. He does not have at present any acute exacerbation. 2. History of obstructive sleep apnea, but has not been compliant with CPAP. 3. Acute kidney injury. 4. Status post fall, followed by the left femur fracture. Preoperative clearance is requested. RECOMMENDATIONS: 1. Discussed with the patient and RN. At this time, he is clinically compensated and I would recommend to proceed with surgery on Saturday. Jajahebertis is on hold. 2. We will add bronchodilator, DuoNeb. 3. We will add oxygen at nighttime. 4. Once he is recovered from surgery we will reassess his compliance with CPAP. 5. Follow renal function and recommendation from cinder pit worker. 6. Discussed with RN. We will follow along with you. EV DR: Connie TID: [id number]
--- NOTE | 2021-11-29 16:29 | RAD ---
Two-view left knee HISTORY: Pain Limited 2 view AP lateral views There is marked tricompartmental degenerative changes with marginal spurring of all 3 compartments. T here is flattening of the tibial plateau. There is a small joint effusion seen on lateral view. There is no lytic destructive changes. IMPRESSION: Severe tricompartmental osteoarthrosis. Electronically signed by: Gurinder Peñaloza III, MD (11/29/2021 4:27 PM) [facility]
--- NOTE | 2021-11-29 17:14 | CARD ---
MR#: [id number] Date of Study: 11/29/2021 Ordering Physician: TYSHAWN JASSO, Referring Physician: TYSHAWN JASSO Tech: Steff Guzman [facility] APPROVED REPORT EXAM: Two-dimensional and M-mode echocardiogram with Doppler and color Doppler. Other Information HR: 70bpm Rhythm : Atrial Fibrillation INDICATION Atrial Fibrillation RISK FACTORS Hypertension Obesity Hyperlipidemia Diabetes 2D DIMENSIONS RVDd2.8 (2.9-3.5cm)Left Atrium(2D)4.4 (1.6-4.0cm) IVSd1.1 (0.7-1.1cm)Aortic Root(2D)3.4 (2.0-3.7cm) LVDd5.0 (3.9-5.9cm)LVOT Diameter2.2 (1.8-2.4cm) PWd1.3 (0.7-1.1cm)LVDs3.3 (2.5-4.0cm) FS (%) 35.1 %SV76.3 ml Aortic Valve AoV Peak Abelardo.165.8cm/sAoV VTI34.4cm AO Peak GR.11.0mmHgLVOT Peak Abelardo.132.9cm/s AO Mean GR.5mmHgAVA (VMAX)3.13cm2 Mitral Valve MV E Beiofqcf53.0cm/sMV DECEL WKST263ox MV A Hizgidaz175.7cm/sE/A Ratio0.7 Pulmonary Valve PV Peak Dpcwbzlc164.5cm/s LEFT VENTRICLE The left ventricle is normal size. There is borderline to mild concentric left ventricular hypertroph y. The left ventricular systolic function is normal and the ejection fraction is within normal range. LV ejection fraction of 50 to 55%. Apical motion consistent with pacemaker activation. RIGHT VENTRICLE The right ventricle is normal size. There is normal right ventricular wall thickness. The right ventr icular systolic function is normal. There is a device lead in the right ventricle. ATRIA The left atrium is mildly dilated. The right atrium size is normal. The interatrial septum is intact with no evidence for an atrial septal defect or patent foramen ovale as noted on 2-D or Doppler imagi ng. AORTIC VALVE The aortic valve is normal in structure and function. Doppler and Color Flow revealed no significant aortic regurgitation. There is no significant aortic valvular stenosis. MITRAL VALVE The mitral valve is normal in structure and function. There is no evidence of mitral valve prolapse. There is no mitral valve stenosis. Doppler and Color-flow revealed mild to moderate mitral regurgitat ion. TRICUSPID VALVE The tricuspid valve is normal in structure and function. Doppler and Color Flow revealed trace tricus pid valve regurgitation. There is no tricuspid valve stenosis. PULMONIC VALVE The pulmonary valve is normal in structure and function. Doppler and Color Flow revealed no pulmonic valvular regurgitation. GREAT VESSELS The aortic root is normal in size. The ascending aorta is normal in size. The IVC is normal in size a nd collapses >50% with inspiration. PERICARDIAL EFFUSION There is no evidence of significant pericardial effusion. Critical Notification Critical Value: No <Conclusion> The left ventricle is normal size. The left ventricular systolic function is normal and the ejection fraction is within normal range. LV ejection fraction of 50 to 55%. Apical motion consistent with pacemaker activation. There is borderline to mild concentric left ventricular hypertrophy. Doppler and Color Flow revealed no significant aortic regurgitation. There is no significant aortic valvular stenosis. Doppler and Color-flow revealed mild to moderate mitral regurgitation. Doppler and Color Flow revealed trace tricuspid valve regurgitation. Signed by : Ace Ackerman MD Electronically Approved : 11/29/2021 17:14:14
--- NOTE | 2021-11-29 17:27 | NUR ---
Dr. Guerra notified by this RN that med rec completed. Dr. Guerra stated he would review/continue medications.
[2021-11-29] MEDS: IPRATRPIUM/ALBUTEROL 0.5/2.5MG 3 ML NEBU. NEB SCH (17:50)
[2021-11-29] MEDS: oxyCODONE/APAP 5/325 1 TAB TABLET PO PRN (20:12)
[2021-11-30 03:00] VITALS: BP 96/49
[2021-11-30 04:03] LABS: BASO % 1 % (0-3); EOS # 0.2 x10^3/uL (0.0-0.7); EOS % 3 % (0-3); HEMATOCRIT 23.8 % (39.0-53.0); HEMOGLOBIN 7.7 g/dL (13.0-17.5); LYMPH # 0.7 x10^3/uL (1.0-4.8); LYMPH % 11 % (24-48); MEAN CORPUSCULAR HEMOGLOBIN 33 pg (25-35); MEAN CORPUSCULAR HGB CONC 33 g/dL (31-37); MEAN CORPUSCULAR VOLUME 103 fL (79-100); MONO # 0.6 x10^3/uL (0.0-1.1); MONO % 9 % (0-9); NEUT # 5.2 x10^3/uL (1.8-7.7); NEUT % 77 % (31-73); PLATELET COUNT 174 x10^3/uL (140-400); RED BLOOD COUNT 2.31 x10^6/uL (4.30-5.70); RED CELL DISTRIBUTION WIDTH 13.4 % (11.5-14.5); WHITE BLOOD COUNT 6.9 x10^3/uL (4.0-11.0)
[2021-11-30 04:13] LABS: CALCIUM 7.8 mg/dL (8.5-10.1); CREATININE 3.3 mg/dL (0.7-1.3); GFR 18.4; POTASSIUM 4.9 mmol/L (3.5-5.1)
[2021-11-30 07:00] VITALS: BP 110/75
[2021-11-30] MEDS: IPRATRPIUM/ALBUTEROL 0.5/2.5MG 3 ML NEBU. NEB SCH ×4 (07:37→20:43)
--- NOTE | 2021-11-30 08:45 | PDOC ---
PULMONARY PROGRESS NOTES DATE: 11/30/21 TIME: 08:44 Subjective denies soa Vitals Vital Signs Date Time Temp Pulse Resp B/P (MAP) Pulse Ox O2 Delivery O2 Flow Rate FiO2 11/30/21 07:38 96 Room Air 11/30/21 03:00 98.1 61 18 96/49 (65) 98.1 General: Alert, No acute distress Lungs: Clear Cardiovascular: S1 Abdomen: Soft, Non-tender Neuro Exam: Alert Extremities: No Edema Skin: Warm Labs Laboratory Tests Test 11/29/21 05:26 11/29/21 07:20 11/29/21 07:30 11/29/21 10:56 Glucose (Fingerstick) 141 mg/dL (70-99) 133 mg/dL (70-99) 126 mg/dL (70-99) White Blood Count 9.2 x10^3/uL (4.0-11.0) Red Blood Count 2.76 x10^6/uL (4.30-5.70) Hemoglobin 9.2 g/dL (13.0-17.5) Hematocrit 28.2 % (39.0-53.0) Mean Corpuscular Volume 102 fL (79-100) Mean Corpuscular Hemoglobin 33 pg (25-35) Mean Corpuscular Hemoglobin Concent 32 g/dL (31-37) Red Cell Distribution Width 13.6 % (11.5-14.5) Platelet Count 204 x10^3/uL (140-400) Neutrophils (%) (Auto) 83 % (31-73) Lymphocytes (%) (Auto) 8 % (24-48) Monocytes (%) (Auto) 6 % (0-9) Eosinophils (%) (Auto) 2 % (0-3) Basophils (%) (Auto) 1 % (0-3) Neutrophils # (Auto) 7.6 x10^3/uL (1.8-7.7) Lymphocytes # (Auto) 0.8 x10^3/uL (1.0-4.8) Monocytes # (Auto) 0.6 x10^3/uL (0.0-1.1) Eosinophils # (Auto) 0.2 x10^3/uL (0.0-0.7) Basophils # (Auto) 0.1 x10^3/uL (0.0-0.2) Sodium Level 139 mmol/L (136-145) Potassium Level 4.6 mmol/L (3.5-5.1) Chloride Level 108 mmol/L (98-107) Carbon Dioxide Level 17 mmol/L (21-32) Anion Gap 14 (6-14) Blood Urea Nitrogen 36 mg/dL (8-26) Creatinine 3.2 mg/dL (0.7-1.3) Estimated GFR (Cockcroft-Gault) 19.0 BUN/Creatinine Ratio 11 (6-20) Glucose Level 126 mg/dL (70-99) Lactic Acid Level 1.5 mmol/L (0.4-2.0) Calcium Level 7.9 mg/dL (8.5-10.1) Magnesium Level 1.6 mg/dL (1.8-2.4) Total Bilirubin 0.2 mg/dL (0.2-1.0) Aspartate Amino Transf (AST/SGOT) 20 U/L (15-37) Alanine Aminotransferase (ALT/SGPT) 23 U/L (16-63) Alkaline Phosphatase 89 U/L (46-116) Creatine Kinase 247 U/L (39-308) QO-Pgj-E-Type Natriuretic Peptide 4015 pg/mL (0-449) Total Protein 5.2 g/dL (6.4-8.2) Albumin 2.5 g/dL (3.4-5.0) Albumin/Globulin Ratio 0.9 (1.0-1.7) Thyroid Stimulating Hormone (TSH) 4.490 uIU/mL (0.358-3.74) Test 11/29/21 13:30 11/29/21 16:48 11/29/21 19:37 11/29/21 19:55 Hemoglobin 8.4 g/dL (13.0-17.5) 7.8 g/dL (13.0-17.5) Glucose (Fingerstick) 157 mg/dL (70-99) 220 mg/dL (70-99) Test 11/30/21 03:10 11/30/21 07:31 White Blood Count 6.9 x10^3/uL (4.0-11.0) Red Blood Count 2.31 x10^6/uL (4.30-5.70) Hemoglobin 7.7 g/dL (13.0-17.5) Hematocrit 23.8 % (39.0-53.0) Mean Corpuscular Volume 103 fL (79-100) Mean Corpuscular Hemoglobin 33 pg (25-35) Mean Corpuscular Hemoglobin Concent 33 g/dL (31-37) Red Cell Distribution Width 13.4 % (11.5-14.5) Platelet Count 174 x10^3/uL (140-400) Neutrophils (%) (Auto) 77 % (31-73) Lymphocytes (%) (Auto) 11 % (24-48) Monocytes (%) (Auto) 9 % (0-9) Eosinophils (%) (Auto) 3 % (0-3) Basophils (%) (Auto) 1 % (0-3) Neutrophils # (Auto) 5.2 x10^3/uL (1.8-7.7) Lymphocytes # (Auto) 0.7 x10^3/uL (1.0-4.8) Monocytes # (Auto) 0.6 x10^3/uL (0.0-1.1) Eosinophils # (Auto) 0.2 x10^3/uL (0.0-0.7) Basophils # (Auto) 0.0 x10^3/uL (0.0-0.2) Sodium Level 136 mmol/L (136-145) Potassium Level 4.9 mmol/L (3.5-5.1) Chloride Level 107 mmol/L (98-107) Carbon Dioxide Level 20 mmol/L (21-32) Anion Gap 9 (6-14) Blood Urea Nitrogen 39 mg/dL (8-26) Creatinine 3.3 mg/dL (0.7-1.3) Estimated GFR (Cockcroft-Gault) 18.4 Glucose Level 129 mg/dL (70-99) Calcium Level 7.8 mg/dL (8.5-10.1) 25-Hydroxy Vitamin D Total 32.1 ng/mL (30-100) Glucose (Fingerstick) 120 mg/dL (70-99) Laboratory Tests Test 11/29/21 10:56 11/29/21 13:30 11/29/21 16:48 11/29/21 19:37 Glucose (Fingerstick) 126 mg/dL (70-99) 157 mg/dL (70-99) 220 mg/dL (70-99) Hemoglobin 8.4 g/dL (13.0-17.5) Test 11/29/21 19:55 11/30/21 03:10 11/30/21 07:31 Hemoglobin 7.8 g/dL (13.0-17.5) 7.7 g/dL (13.0-17.5) White Blood Count 6.9 x10^3/uL (4.0-11.0) Red Blood Count 2.31 x10^6/uL (4.30-5.70) Hematocrit 23.8 % (39.0-53.0) Mean Corpuscular Volume 103 fL (79-100) Mean Corpuscular Hemoglobin 33 pg (25-35) Mean Corpuscular Hemoglobin Concent 33 g/dL (31-37) Red Cell Distribution Width 13.4 % (11.5-14.5) Platelet Count 174 x10^3/uL (140-400) Neutrophils (%) (Auto) 77 % (31-73) Lymphocytes (%) (Auto) 11 % (24-48) Monocytes (%) (Auto) 9 % (0-9) Eosinophils (%) (Auto) 3 % (0-3) Basophils (%) (Auto) 1 % (0-3) Neutrophils # (Auto) 5.2 x10^3/uL (1.8-7.7) Lymphocytes # (Auto) 0.7 x10^3/uL (1.0-4.8) Monocytes # (Auto) 0.6 x10^3/uL (0.0-1.1) Eosinophils # (Auto) 0.2 x10^3/uL (0.0-0.7) Basophils # (Auto) 0.0 x10^3/uL (0.0-0.2) Sodium Level 136 mmol/L (136-145) Potassium Level 4.9 mmol/L (3.5-5.1) Chloride Level 107 mmol/L (98-107) Carbon Dioxide Level 20 mmol/L (21-32) Anion Gap 9 (6-14) Blood Urea Nitrogen 39 mg/dL (8-26) Creatinine 3.3 mg/dL (0.7-1.3) Estimated GFR (Cockcroft-Gault) 18.4 Glucose Level 129 mg/dL (70-99) Calcium Level 7.8 mg/dL (8.5-10.1) 25-Hydroxy Vitamin D Total 32.1 ng/mL (30-100) Glucose (Fingerstick) 120 mg/dL (70-99) Medications Active Scripts Medications Dose Route/Sig Max Daily Dose Days Date Category Dose Instructions Spironolactone 25 Mg Tablet 0.5 Tab PO DAILY 11/29/21 Reported Entresto 97 mg-103 mg Tablet (Sacubitril/Valsartan) 1 Each Tablet 1 Each PO BID 11/29/21 Reported Crestor (Rosuvastatin Calcium) 40 Mg Tablet 40 Mg PO HS 11/29/21 Reported Pantoprazole Sodium (Pantoprazole Sodium) 40 Mg Tablet.dr 40 Mg PO DAILYAC 11/29/21 Reported Loratadine 10 Mg Tablet 1 Tab PO PRN DAILY PRN 11/29/21 Reported Glipizide 10 Mg Tablet 2 Tab PO DAILY 11/29/21 Reported Fluticasone Propionate Nasal [place] (Fluticasone Propionate) 16 Gm [place].susp 2 [place] NS DAILY 11/29/21 Reported Docusate Sodium 100 Mg Capsule 1 Cap PO BID 7 11/29/21 Reported Symbicort 160-4.5 Mcg Inhaler (Budesonide/Formoterol Fumarate) 10.2 Gm Hfa.aer.ad 2 Puff IH BID 11/29/21 Reported Bisoprolol Fumarate 10 Mg Tablet 10 Mg PO DAILY 11/29/21 Reported Eliquis (Apixaban) 5 Mg Tablet 5 Mg PO BID 11/29/21 Reported Amiodarone Hcl 200 Mg Tablet 1 Tab PO DAILY 11/29/21 Reported Acetaminophen 325 Mg Tablet 2 Tab PO PRN QID PRN 30 11/29/21 Reported Zinc Gluconate 100 Mg Tablet 0.5 Tab PO DAILY 30 11/29/21 Reported Vitamin D3 (Vitamin D) 25 Mcg Tablet 25 Mcg PO DAILY 11/29/21 Reported 1,000 UNITS = 25 MCG Epidiolex (Cannabidiol (Cbd) Extract) 100 Mg/1 Ml Solution 50 Mg PO HS 11/29/21 Reported Aspirin 81 Mg Tab.chew 1 Tab PO DAILY 11/29/21 Reported Proair Respiclick (Albuterol Sulfate) 90 Mcg Aer.pow.ba 2 Puff IH QID PRN 3/23/22 Reported Impression . IMPRESSION: 1. The patient with 50 years of tobaccoism. Suspect underlying COPD. He does have exertional dyspnea. He is not on current bronchodilators. He does not have at present any acute exacerbation. 2. History of obstructive sleep apnea, but has not been compliant with CPAP. 3. Acute kidney injury. 4. Status post fall, followed by the left femur fracture. Preoperative clearance is requested. Plan . RECOMMENDATIONS: 1. Discussed with the patient and RN. At this time, he is clinically compensated and I would recommend to proceed with surgery on Saturday. Jajahebertis is on hold. 2. bronchodilator, DuoNeb. 3. oxygen at nighttime. 4. Once he is recovered from surgery we will reassess his compliance with CPAP.. He is requesting for oral appliance.will consult dentiast as OP. 5. Follow renal function and recommendation from metal inspector. 6. Discussed with RN/ family. We will follow along with you. WILLIAM VAZ MD Nov 30, 2021 08:45
[2021-11-30] MEDS: oxyCODONE/APAP 5/325 1 TAB TABLET PO PRN ×2 (09:13→19:23)
--- NOTE | 2021-11-30 09:45 | PDOC ---
DATE OF SERVICE DATE: 11/30/21 TIME: 09:45 SUBJECTIVE ROS stable, No SOB, No N/V OBJECTIVE Vital Signs Vital Signs Date Time Temp Pulse Resp B/P (MAP) Pulse Ox O2 Delivery O2 Flow Rate FiO2 11/30/21 09:13 18 Room Air 11/30/21 07:38 96 11/30/21 07:00 98.0 79 110/75 (87) 98.0 I & 0 Intake and Output 11/30/21 07:00 Intake Total 1530 ml Output Total 950 ml Balance 580 ml Intake Oral 480 ml IV Total 1050 ml Output Urine Total 950 ml PHYSICAL EXAM Physical Exam General: Alert, Oriented X3, Cooperative, No acute distress HEENT: Atraumatic, Mucous membr. moist/pink nECK sUPPLE Lungs: Clear to auscultation, Normal air movement Heart: SR Abdomen: Soft, No tenderness, Extremities: No cyanosis, No edema, severe arthritis Both Knee with swelling , chronic Skin: , No rash Neuro: Normal speech, grossly normal Psych/Mental Status: stable, cooperative Ostomy + DIAGNOSIS/ASSESSMENT Assessment & Plan ZACHARY - Dehydration /Vasomotor, At home on Entersto and Aldactone per med list from [place] . Maintain hydration . K normal, Co2 low- if persistent switCh to Bicarb gtt . Strict I/O, Avoid nephrotoxins . Had a Long discussion with patient and daughter yesterday and again today CKD stage 3 B/4 - Follows with Dr Joe, [facility] at [facility] .Obtained and reviewed records from [place] [facility]- recent appt Mid Oct , Cr baseline high 1.6 to .2.2, (recent eGFR 29ml) . Renal US 2018 -Cyst Lt Kidney Ur Alb/cr 400 . FU scheduled for 4 months Hx of Bladder cancer s/p Cystectomy December 2020- reviewed records. Has Urostomy. In remission. . Had Hematuria approx 2-[address] Joe's note . Follows with at [facility] ; Loopogram on 11/28 HTN Hypotensive since presentation Traumatic mechanical fall: no associated syncope/presyncopal symptoms- Left intertrochanteric femoral fracture- Ortho consulted - surgery planned for Tomorrow Anemia- Monitor , Hgb trending down . May need PRBC. Defer to Primary DM2 with distal polyneuropathy NICM: compensated AICD in situ: [employer]. SR with intermittent atrial pacing PAFIB: last dose of eliquis yesterday evening Hx of carotid artery disease and S/P bilateral CEA CBD use Heavy ETOH misuse: about 4 shots of tequila nightly using it for insomnia Hx of CHRISTY: does not use his CPAP Hx of CVA COMMENT/RELEVANT DATA Meds Current Medications Medications (Trade) Dose Ordered Sig/[place]ol[place] Start Time Stop Time Status Last Admin Dose Admin Albuterol/ Ipratropium (Duoneb) 3 ml RTQID 11/29/21 16:00 11/30/21 07:37 3 ML Chlordiazepoxide (Librium) 100 mg PRN Q1HR PRN 11/29/21 12:30 Dextrose (Dextrose 50%-Water Syringe) 12.5 gm PRN Q15MIN PRN 11/29/21 05:45 Dextrose (Iv Dextrose 5%) 250 ml PRN Q15MIN PRN 11/29/21 05:45 Fentanyl Citrate (Fentanyl 2ml Vial) 50 mcg PRN Q1HR PRN 11/29/21 09:45 11/29/21 11:46 50 MCG Folic Acid (Folic Acid) 1 mg DAILY 12/04/21 09:00 Magnesium Sulfate 50 ml @ 25 mls/hr 1X ONCE 11/29/21 11:15 11/29/21 13:14 DC 11/29/21 12:40 25 MLS/HR Multivitamins (Thera M Plus) 1 tab DAILY 12/04/21 09:00 Oxycodone/ Acetaminophen (Percocet 5/325) 1 tab PRN Q4HRS PRN 11/29/21 15:00 Cancel Perflutren Protein Type A Microsphe (Optison) 0.66 mg STK-MED ONCE 11/29/21 13:30 11/29/21 13:30 DC Sodium Chloride 1,000 ml @ 100 mls/hr 1X ONCE 11/29/21 10:00 11/29/21 19:59 DC 11/29/21 15:36 100 MLS/HR Thiamine Mononitrate (Vitamin B-1) 100 mg DAILY 12/04/21 09:00 Lab Laboratory Tests Test 11/29/21 10:56 11/29/21 13:30 11/29/21 16:48 11/29/21 19:37 Glucose (Fingerstick) 126 mg/dL (70-99) 157 mg/dL (70-99) 220 mg/dL (70-99) Hemoglobin 8.4 g/dL (13.0-17.5) Test 11/29/21 19:55 11/30/21 03:10 11/30/21 07:31 Hemoglobin 7.8 g/dL (13.0-17.5) 7.7 g/dL (13.0-17.5) White Blood Count 6.9 x10^3/uL (4.0-11.0) Red Blood Count 2.31 x10^6/uL (4.30-5.70) Hematocrit 23.8 % (39.0-53.0) Mean Corpuscular Volume 103 fL (79-100) Mean Corpuscular Hemoglobin 33 pg (25-35) Mean Corpuscular Hemoglobin Concent 33 g/dL (31-37) Red Cell Distribution Width 13.4 % (11.5-14.5) Platelet Count 174 x10^3/uL (140-400) Neutrophils (%) (Auto) 77 % (31-73) Lymphocytes (%) (Auto) 11 % (24-48) Monocytes (%) (Auto) 9 % (0-9) Eosinophils (%) (Auto) 3 % (0-3) Basophils (%) (Auto) 1 % (0-3) Neutrophils # (Auto) 5.2 x10^3/uL (1.8-7.7) Lymphocytes # (Auto) 0.7 x10^3/uL (1.0-4.8) Monocytes # (Auto) 0.6 x10^3/uL (0.0-1.1) Eosinophils # (Auto) 0.2 x10^3/uL (0.0-0.7) Basophils # (Auto) 0.0 x10^3/uL (0.0-0.2) Sodium Level 136 mmol/L (136-145) Potassium Level 4.9 mmol/L (3.5-5.1) Chloride Level 107 mmol/L (98-107) Carbon Dioxide Level 20 mmol/L (21-32) Anion Gap 9 (6-14) Blood Urea Nitrogen 39 mg/dL (8-26) Creatinine 3.3 mg/dL (0.7-1.3) Estimated GFR (Cockcroft-Gault) 18.4 Glucose Level 129 mg/dL (70-99) Calcium Level 7.8 mg/dL (8.5-10.1) 25-Hydroxy Vitamin D Total 32.1 ng/mL (30-100) Glucose (Fingerstick) 120 mg/dL (70-99) Results All relevant outside records, renal labs, imaging studies, telemetry/EKG's were reviewed. Justicifation of Admission Dx: Justifications for Admission: Justification of Admission Dx: N/A ONOFRE SANCHEZ MD Nov 30, 2021 09:45
[2021-11-30] MEDS ORDERED: ACETAMINOPHEN 325 MG TABLET. PO PRN (10:45)
[2021-11-30] MEDS ORDERED: NON FORMULARY ITEM (Albuterol Sulfate (Proair Respiclick) 2 PUFF) IH PRN (10:45)
[2021-11-30 11:00] VITALS: BP 108/42
[2021-11-30] MEDS ORDERED: SACUBITRIL/VALSARTAN 49/51MG TABLET. PO SCH (11:00)
[2021-11-30] MEDS ORDERED: SPIRONOLACTONE 25 MG TABLET PO SCH (11:00)
[2021-11-30] MEDS: AMIODARONE HCL 200 MG TABLET. PO SCH (11:00)
--- NOTE | 2021-11-30 11:42 | PDOC ---
CARDIO Progress Notes Date and Time Date of Service 11/30/2021 Time of Evaluation 1120 Subjective Subjective: No Chest Pain, No shortness of breath, No Palpitations, Other (left hip pain controlled) Vitals Vitals Vital Signs Date Time Temp Pulse Resp B/P (MAP) Pulse Ox O2 Delivery O2 Flow Rate FiO2 11/30/21 09:13 18 Room Air 11/30/21 07:38 96 11/30/21 07:00 98.0 79 110/75 (87) 98.0 Weight Weight [ ] Input and Output Intake and Output Intake and Output 11/30/21 07:00 Intake Total 1530 ml Output Total 950 ml Balance 580 ml Intake Oral 480 ml IV Total 1050 ml Output Urine Total 950 ml Laboratory Labs Laboratory Tests Test 11/29/21 13:30 11/29/21 16:48 11/29/21 19:37 11/29/21 19:55 Hemoglobin 8.4 g/dL (13.0-17.5) 7.8 g/dL (13.0-17.5) Glucose (Fingerstick) 157 mg/dL (70-99) 220 mg/dL (70-99) Test 11/30/21 03:10 11/30/21 07:31 White Blood Count 6.9 x10^3/uL (4.0-11.0) Red Blood Count 2.31 x10^6/uL (4.30-5.70) Hemoglobin 7.7 g/dL (13.0-17.5) Hematocrit 23.8 % (39.0-53.0) Mean Corpuscular Volume 103 fL (79-100) Mean Corpuscular Hemoglobin 33 pg (25-35) Mean Corpuscular Hemoglobin Concent 33 g/dL (31-37) Red Cell Distribution Width 13.4 % (11.5-14.5) Platelet Count 174 x10^3/uL (140-400) Neutrophils (%) (Auto) 77 % (31-73) Lymphocytes (%) (Auto) 11 % (24-48) Monocytes (%) (Auto) 9 % (0-9) Eosinophils (%) (Auto) 3 % (0-3) Basophils (%) (Auto) 1 % (0-3) Neutrophils # (Auto) 5.2 x10^3/uL (1.8-7.7) Lymphocytes # (Auto) 0.7 x10^3/uL (1.0-4.8) Monocytes # (Auto) 0.6 x10^3/uL (0.0-1.1) Eosinophils # (Auto) 0.2 x10^3/uL (0.0-0.7) Basophils # (Auto) 0.0 x10^3/uL (0.0-0.2) Sodium Level 136 mmol/L (136-145) Potassium Level 4.9 mmol/L (3.5-5.1) Chloride Level 107 mmol/L (98-107) Carbon Dioxide Level 20 mmol/L (21-32) Anion Gap 9 (6-14) Blood Urea Nitrogen 39 mg/dL (8-26) Creatinine 3.3 mg/dL (0.7-1.3) Estimated GFR (Cockcroft-Gault) 18.4 Glucose Level 129 mg/dL (70-99) Calcium Level 7.8 mg/dL (8.5-10.1) 25-Hydroxy Vitamin D Total 32.1 ng/mL (30-100) Glucose (Fingerstick) 120 mg/dL (70-99) Physical Exam HEENT: Neck Supple W Full Motion Chest: Symmetric LUNGS: Clear to Auscultation Heart: RRR (SR), murmurs (3/6 systolic murmur to apex) Abdomen: Soft N/T, Other (truncal obesity) Extremities: No Edema, No Calf Tenderness, Other (LLE shorter than right) Neurology: alert, oriented, follow commands Assessment Assessment 1. Traumatic mechanical fall: no associated syncope/presyncopal symptoms 2. Left intertrochanteric femoral fracture 3. Presumed NICM: compensated. recovered EF at 50-55% per TTE 4. AICD in situ: [employer]. SR with intermittent atrial pacing 5. Possible hx of tachy cali syndrome 6. PAFIB: last dose of eliquis yesterday evening. Maintaining SR lowest HR mid40s 7. Hypotension: BP better 8. Hyperlipidemia 9. DM2 with distal polyneuropathy 10. ZACHARY on CKD: nephrology following Cr at 3.3 11. Hx of carotid artery disease and S/P bilateral CEA 12. Hx of bladder CA in remission: urostomy in place 13. Possible chronic UTI 14. CBD uise 15. Heavy ETOH misuse: about 4 shots of tequila nightly using it for insomnia 16. Anemia: trended down to Hgb 7.7 17. Chronic diastolic CHF: clinically compensated. was on entresto 18. suspect COPD: controlled 19. Hx of CHRISTY: does not use his CPAP 20. Hx of CVA Recommendations 1. Will need left hip repair, scheduled for tomorrow. Will obtain TTE 2. Preop cardiac eval with moderate to high risk for perioperative CV events for noncardiac surgery 3. Avoid high rate IVF to avoid CHF decompensation. 4. Hold eliquis and ASA. He will need PRBC, will defer to PCP 5. Stop home entresto/aldactone with low CrCl. Secondary prevention measures. Continue amiodarone and atenolol 6. Supportive care Justicifation of Admission Dx: Justifications for Admission: Justification of Admission Dx: N/A TYSHAWN JASSO APRN Nov 30, 2021 11:42
--- NOTE | 2021-11-30 11:42 | PN ---
DATE: 11/30/2021 SUBJECTIVE: The patient is resting, slightly propped up in bed, in no apparent respiratory distress. On questioning him, his pain is well controlled. Denied any chest pain or shortness of breath. He is apparently scheduled for surgery tomorrow. He was seen by the fusing furnace loader who cleared him for surgery and Dr. Almeida did not feel that he needs any dialysis for the time being. PHYSICAL EXAMINATION: GENERAL: When I examined him this morning, he was pale, no jaundice, cyanosis, no lymphadenopathy, no thyromegaly, no jugular venous distention. No limb edema. VITAL SIGNS: His heart rate was 79, blood pressure is 110/75, temperature was 98, respiratory rate was 18 and oxygen saturation was 96% on room air. HEAD, EYES, EARS, NOSE, AND THROAT: Normocephalic, atraumatic. NECK: Supple. HEART: Normal first and second heart sounds. No gallop, rub or murmur. CHEST: Shows central trachea, equal bilateral chest expansion, air entry, vesicular breath sounds. No crepitation or rhonchi. ABDOMEN: Distended, soft, nontender. NEUROLOGIC: He is awake, alert, responding appropriately. All cranial nerves intact. He moves upper extremities without difficulty. His left lower extremity is shortened and externally rotated. His intake over the last 24 hours and output are incompletely recorded. LABORATORY DATA: This morning showed a white cell count 6.9, hemoglobin 7.7, hematocrit 24, MCV 103 and platelet count 174,000 with normal manual differential. His chemistry showed a serum sodium 136, potassium 4.9, chloride 107, bicarbonate 20, anion gap of 9, BUN 39, creatinine 3.3. Estimated GFR was 18 mL per minute. His glucose 129 and calcium was 7.8. His 25-hydroxy vitamin D was 32, which is within normal range of 30 to 100 ng/mL. ASSESSMENT: 1. Acute left intertrochanteric femur fracture with some displacement following mechanical fall. 2. Acute on chronic kidney injury. His creatinine is up to 3.3. 3. Hypotension, likely multifactorial. His blood pressure is much better, looks better today. 3. Has acute blood loss anemia. His hemoglobin has dropped down to 7.7. 5. Nonischemic cardiomyopathy for which he has an AICD. 6. Hyperlipidemia. 7. Type 2 diabetes mellitus. 8. Carotid artery disease, status post bilateral carotid endarterectomy. 9. Bladder cancer, status post cystectomy and urostomy. 10. Possible urinary tract infection. 11. Heavy alcohol use. The patient drinks up to 3-4 shots of tequila every night for sleep. 12. Suspected chronic obstructive pulmonary disease and history of obstructive sleep apnea although the patient is not on any CPAP. PLAN: My plan is to obviously monitor his lab work and especially his H and H and transfuse him as needed. Meanwhile, I reconciled all his medications. ALLEN/SAMUEL DR: Babs TID: [id number]
[2021-11-30] MEDS ORDERED: ALBUTEROL SULFATE 2.5 MG/3 ML NEBU. NEB PRN (11:45)
[2021-11-30] MEDS ORDERED: ALBUTEROL SULFATE 2.5 MG/3 ML NEBU. NEB SCH (12:00)
[2021-11-30] MEDS: ATENOLOL 50 MG TABLET. PO SCH (12:00)
[2021-11-30 12:29] LABS: ALBUMIN 2.3 g/dL (3.4-5.0); CALCIUM 8.3 mg/dL (8.5-10.1); CREATININE 3.3 mg/dL (0.7-1.3); GFR 18.4; PHOSPHORUS 4.3 mg/dL (2.6-4.7); POTASSIUM 5.1 mmol/L (3.5-5.1)
[2021-11-30] MEDS: CHOLECALCIFEROL (VITAMIN D3) 1,000 UNIT TABLET PO SCH (12:50)
[2021-11-30] MEDS: FLUTICASONE 50MCG/NASAL SPRAY 16GM BOTTLE. NS SCH (12:50)
[2021-11-30] MEDS: ZINC SULFATE 220 MG CAPSULE. PO SCH (12:50)
[2021-11-30] MEDS: CETIRIZINE HCL 10 MG TABLET. PO SCH (12:52)
[2021-11-30] MEDS: DOCUSATE SODIUM 100 MG CAPSULE. PO SCH ×2 (12:52→21:27)
[2021-11-30] MEDS: PANTOPRAZOLE 40 MG TABLET.DR. PO SCH (12:52)
[2021-11-30 15:00] VITALS: BP 123/52
[2021-11-30 19:00] VITALS: BP 95/42
--- NOTE | 2021-11-30 19:33 | NUR ---
This RN spoke with Yomi at [employer], he verbalized that he would be here to evaluate AICD post surgery.
[2021-11-30] MEDS: BUDESONIDE 0.5 MG/2 ML NEBU. NEB SCH (20:43)
[2021-11-30] MEDS ORDERED: CANNABIDIOL PO SCH (21:00)
[2021-11-30] MEDS ORDERED: NON FORMULARY ITEM (Budesonide/Formoterol Fumarate (Symbicort 160-4.5 Mcg Inhaler) 2 PUFF) IH SCH (21:00)
[2021-11-30] MEDS ORDERED: EXTRACT PO SCH (21:00)
[2021-11-30] MEDS: ATORVASTATIN CALCIUM 40 MG TABLET. PO SCH (21:27)
[2021-11-30 22:55] VITALS: BP 97/47
[2021-12-01] VITALS (17 sets, daily range): BP systolic 83–171; BP diastolic 23–87
[2021-12-01 05:56] LABS: BASO # 0.1 x10^3/uL (0.0-0.2); BASO % 1 % (0-3); EOS # 0.3 x10^3/uL (0.0-0.7); EOS % 4 % (0-3); HEMATOCRIT 22.7 % (39.0-53.0); HEMOGLOBIN 7.3 g/dL (13.0-17.5); LYMPH # 0.6 x10^3/uL (1.0-4.8); LYMPH % 8 % (24-48); MEAN CORPUSCULAR HEMOGLOBIN 33 pg (25-35); MEAN CORPUSCULAR HGB CONC 32 g/dL (31-37); MEAN CORPUSCULAR VOLUME 104 fL (79-100); MONO # 0.6 x10^3/uL (0.0-1.1); MONO % 8 % (0-9); NEUT # 6.2 x10^3/uL (1.8-7.7); NEUT % 80 % (31-73); PLATELET COUNT 188 x10^3/uL (140-400); RED BLOOD COUNT 2.18 x10^6/uL (4.30-5.70); RED CELL DISTRIBUTION WIDTH 13.4 % (11.5-14.5); WHITE BLOOD COUNT 7.7 x10^3/uL (4.0-11.0)
[2021-12-01] MEDS ORDERED: PROCHLORPERAZINE 10 MG/2 ML VIAL. IVP PRN (06:00)
[2021-12-01] MEDS ORDERED: fentaNYL PF VIAL 100 MCG/2 ML VIAL IVP PRN ×3 (06:00→12:45)
[2021-12-01] MEDS ORDERED: HYDROmorphone 2 MG/ML INJ. IVP PRN (06:00)
[2021-12-01] MEDS ORDERED: IV RINGERS,LACTATED 1000ML 1,000 ML IV SCH (06:00)
[2021-12-01] MEDS ORDERED: MORPHINE SULFATE 2 MG/ML INJ. IVP PRN (06:00)
[2021-12-01 06:18] LABS: ALBUMIN 2.3 g/dL (3.4-5.0); ALBUMIN/GLOBULIN RATIO 0.7 (1.0-1.7); CALCIUM 8.5 mg/dL (8.5-10.1); CREATININE 3.3 mg/dL (0.7-1.3); GFR 18.4; TOTAL BILIRUBIN 0.3 mg/dL (0.2-1.0); TOTAL PROTEIN 5.6 g/dL (6.4-8.2)
[2021-12-01 06:31] LABS: POTASSIUM 5.5 mmol/L (3.5-5.1)
[2021-12-01] MEDS ORDERED: PROPOFOL 10 MG/ML (20ML) VIAL. IV ONE (06:44)
[2021-12-01] MEDS ORDERED: ROCURONIUM 100 MG/10 ML VIAL. ONE (06:48)
[2021-12-01] MEDS ORDERED: DEXAMETHASONE SOD PHOS 4 MG/ML VIAL ONE (06:48)
[2021-12-01] MEDS ORDERED: ONDANSETRON PF 4 MG/2 ML VIAL. ONE (06:48)
[2021-12-01] MEDS ORDERED: ceFAZolin 2GM PREMIX 2 GM/50 ML BAG IV ONE (07:00)
[2021-12-01] MEDS ORDERED: fentaNYL PF VIAL 100 MCG/2 ML VIAL ONE (07:03)
[2021-12-01] MEDS ORDERED: SUGAMMADEX SODIUM 200 MG/2 ML VIAL. IVP ONE ×2 (07:15→09:00)
[2021-12-01] MEDS ORDERED: FAMOTIDINE 20 MG/2 ML VIAL ONE (07:23)
[2021-12-01] MEDS ORDERED: FAMOTIDINE 20 MG/2 ML VIAL IVP ONE (07:30)
[2021-12-01] MEDS: PANTOPRAZOLE 40 MG TABLET.DR. PO SCH (07:30)
[2021-12-01] MEDS: IPRATRPIUM/ALBUTEROL 0.5/2.5MG 3 ML NEBU. NEB SCH ×4 (07:58→20:15)
[2021-12-01] MEDS ORDERED: IV NORMAL SALINE 1000ML BAG 1,000 ML IV SCH (08:00)
[2021-12-01] MEDS: BUDESONIDE 0.5 MG/2 ML NEBU. NEB SCH ×2 (08:00→20:15)
[2021-12-01] MEDS ORDERED: PHENYLEPHRINE in 0.9% NACL PF 1 MG/10 ML SYRINGE. IV ONE (08:30)
[2021-12-01] MEDS ORDERED: ALBUMIN HUMAN 5% 500 ML IV ONE (08:30)
[2021-12-01] MEDS: DOCUSATE SODIUM 100 MG CAPSULE. PO SCH ×2 (09:00→21:03)
[2021-12-01] MEDS: CETIRIZINE HCL 10 MG TABLET. PO SCH (09:00)
[2021-12-01] MEDS: ZINC SULFATE 220 MG CAPSULE. PO SCH (09:00)
[2021-12-01] MEDS: FLUTICASONE 50MCG/NASAL SPRAY 16GM BOTTLE. NS SCH (09:00)
[2021-12-01] MEDS: AMIODARONE HCL 200 MG TABLET. PO SCH (09:00)
[2021-12-01] MEDS: CHOLECALCIFEROL (VITAMIN D3) 1,000 UNIT TABLET PO SCH (09:00)
[2021-12-01] MEDS: ATENOLOL 50 MG TABLET. PO SCH (09:00)
--- NOTE | 2021-12-01 09:41 | PN ---
DATE: 12/01/2021 SUBJECTIVE: The patient is resting, slightly propped up in bed, in no apparent respiratory distress, awake, alert. He is scheduled for a surgery today. OBJECTIVE: GENERAL: On examining him, he looked well and was clearly in no apparent respiratory distress. No pallor, jaundice, cyanosis or thyromegaly. No jugular venous distention. No limb edema. VITAL SIGNS: His heart rate was 64, blood pressure 157/99, temperature was 97.6, respiratory rate was 15 and oxygen saturation was 98%. The rest of clinical exam stable. His intake was 1530, output was 950. LABORATORY DATA: His lab work this morning showed a white cell count of 7.7, hemoglobin 7.3, hematocrit 22.7, MCV 104 and platelet count of 188,000. His chemistry showed a serum sodium 138, potassium 5.5, chloride 106, bicarbonate 21, anion gap of 11, BUN 39, creatinine 3.3. Estimated GFR was 18 mL per minute. His glucose 139, calcium was 8.5. Total bilirubin, AST, ALT, alkaline phosphatase were normal. Total protein 5.6, albumin was 2.3. ASSESSMENT: 1. Fall with resultant acute left intertrochanteric femur fracture with some displacement following mechanical fall. He is scheduled for surgical treatment this morning. 2. Acute on chronic kidney injury. His creatinine has stabilized around 3.3. 3. Hypotension, likely multifactorial. His blood pressure is much improved. 4. Acute blood loss anemia. His most recent hemoglobin was 7.3. 5. Nonischemic cardiomyopathy for which he has an AICD. 6. Hyperlipidemia. 7. Type 2 diabetes mellitus, seems to be reasonably controlled. 8. Carotid artery disease, status post bilateral carotid endarterectomy. 9. Bladder cancer, status post cystectomy and urostomy. 10. Possible urinary tract infection. 11. Heavy alcohol use: The patient drinks up to 3-4 shots of tequila every night for sleep. 12. Suspected chronic obstructive pulmonary disease with history of obstructive sleep apnea, although the patient is not on any CPAP. PLAN: To repeat his labs after surgery and transfuse him 1 unit of blood and also we will treat check his potassium and treat it accordingly. ALLEN/SAMUEL DR: Babs TID: [id number]
--- NOTE | 2021-12-01 10:10 | PDOC4 ---
Operative Note Operative Note Date of Procedure: December 01, 2021 Pre-Op Diagnosis: Displaced intertrochanteric fracture of left femur, initial encounter for closed fracture S72.142A Post-Op Diagnosis: same Procedure: left hip treatment of intertrochanteric femoral fracture with intramedullary implant, with interlocking screws CPT 06810 Surgeon: Le Castillo MD Anesthesia Type: General EBL: 200 mL Specimens Obtained: none Complications: None Implant Company: [employer] Implants: Gamma 3 system Long Nail Kit R1.5 left 13 mm x 420 mm x 125 Gamma 3 system Lag Screw Titanium 10.5 mm x115 mm; locking screw fully threaded 5 mm x 55 mm INDICATION FOR PROCEDURE: This patient is 76 years old, and fell, sustaining a left hip fracture. He normally uses a walker and has difficulty with ambulation due to knee arthritis and ankle arthritis and due to other conditions such as diabetic neuropathy. X-rays show an unstable intertrochanteric comminuted hip fracture with subtrochanteric extension. The patient, the patient's family, and I discussed the risks, benefits and alternatives of treatment. The alternative for treatment is bedrest, which I generally do not recommend unless is imminent. I recommended intramedullary nailing, and I talked to them about the potential risks of this, including bleeding, infection, blood clots, malunion, nonunion or other potential surgical or anesthetic complications. This patient is at increased risk of complications due to multiple medical comorbidities including renal failure, congestive heart failure, atrial fibrillation, Eliquis blood thinners, severe knee arthritis with decreased bone density of the left femur, and other conditions and the patient and his family and I discussed this. All of the patient and family questions about surgery were answered, and he and his family desired to proceed. A written consent was obtained. PROCEDURE IN DETAIL: The patient was identified in the preoperative holding area. The correct left hip was marked by me. The patient was taken to the operating room, where the patient was anesthetized by the Department of Anesthesia. Preoperative antibiotics were given intravenously. The HANA table was used and the well leg was placed in a padded lithotomy leg arellano while the foot of the left leg was placed in a traction foot boot. A time-out procedure was performed. The image intensifier was used, and a preliminary reduction performed. All of the images were interpreted intraoperatively by me, and the image intensifier was used throughout the case. The left hip area was prepared in sterile fashion with ChloraPrep solution and a sterile barrier Ioban hip drape was used. An incision was made over the superior aspect of the greater trochanter. A 3.2 mm guide pin was placed at the tip of the greater trochanter, and advanced into the intramedullary canal. The guidewire had to be repositioned several times, partly due to the soft bone which allowed the guidewire to be advanced manually, and partly due to the multiple heterotopic enthesophytes which distorted the anatomy of the proximal femur. The one step conical reamer was used over the guidewire, and a reamer sleeve was used to protect the soft tissues. A long guide pin was placed down the intramedullary canal and the length was measured. The nail length was chosen based on that measurement. The bone at the distal femur is also quite thin on x-ray, very osteopenic and the patient has a varus knee which would put excess stress on the distal femur. I planned to advance the nail as far distally as possible to prevent supracondylar femur fracture. The canal was sequentially reamed for a long nail until intramedullary chatter occurred, and it only occurred mildly even with a 15 mm reamer. The 13 mm diameter nail (largest diameter nail) was chosen based on the intramedullary chatter and the thin bone cortices. The chosen 13 mm x 420 mm nail was attached to the targeting device with the Nail Holding Screw. The nail was placed down the canal on the targeting device, and the guide wire was removed. A second incision was now used over the lower part of the greater trochanter, to place a guide pin through the guide, near the center-center position of the femoral head, and measured. The guidepin was placed slightly toward the posterior femoral head to achieve the best bone purchase. The tunnel for the lag screw was reamed using the cannulated Lag Screw Step Drill. The chosen 115 mm lag screw was inserted using the guide and advanced until there was a low tip- apex distance, by using sequential checks on the image intensifier. A Set Screw was now placed to lock the Lag Screw. Traction on the HANA table was released. Finally, a 5.0 mm diameter Distal Cross Lock Screw was placed distally near the knee, using a freehand technique and the image intensifier, after predrilling. Satisfactory fracture reduction and hardware position was obtained using image intensifier views in multiple planes. Copious irrigation was used and the fascia was closed with #2 Vicryl. Bovie electrocautery was used for hemostasis. I used a multidrug injection for hemostasis and pain relief which includes ropivacaine, epinephrine, and morphine. My credentialing assistant completed the closure with 2-0 Vicryl and jennifer. A bulky sterile dressing was applied. The patient was gently transferred from the fracture table back to a hospital bed. There were no apparent complications. LE CASTILLO MD Dec 01, 2021 10:10
--- NOTE | 2021-12-01 10:36 | NUR ---
SW following. Discussed with RN, pt from home with , room air, NPO. Pt having hip surgery today. Therapy to work with pt after surgery. LEE will continue to follow.
[2021-12-01] MEDS ORDERED: INSULIN LISPRO 100 UNIT/ML 3ML VIAL for OP,RR ONLY. SQ PRN (10:45)
[2021-12-01 11:05] LABS: WHITE BLOOD COUNT 13.4 x10^3/uL (4.0-11.0)
[2021-12-01 11:06] LABS: HEMATOCRIT 23.8 % (39.0-53.0); HEMOGLOBIN 7.5 g/dL (13.0-17.5); RED BLOOD COUNT 2.38 x10^6/uL (4.30-5.70); RED CELL DISTRIBUTION WIDTH 16.7 % (11.5-14.5)
[2021-12-01 11:18] LABS: CALCIUM 8.2 mg/dL (8.5-10.1); CREATININE 2.9 mg/dL (0.7-1.3); GFR 21.3; POTASSIUM 5.1 mmol/L (3.5-5.1)
[2021-12-01] MEDS ORDERED: IV DEXTROSE 5% 250 ML BAG. IV PRN (12:45)
[2021-12-01] MEDS ORDERED: ONDANSETRON PF 4 MG/2 ML VIAL. IVP PRN (12:45)
[2021-12-01] MEDS ORDERED: POLYETHYLENE GLYCOL 3350 17 GM PACKET. PO PRN (12:45)
[2021-12-01] MEDS ORDERED: DEXTROSE 50% 25 GM / 50ML DISP.SYRIN. IV PRN (12:45)
[2021-12-01] MEDS ORDERED: oxyCODONE/APAP 5/325 1 TAB TABLET PO PRN (12:45)
--- NOTE | 2021-12-01 14:18 | PDOC ---
DATE OF SERVICE DATE: 12/01/21 TIME: 10:30 SUBJECTIVE ROS Post treatment of fracture earlier today , in recovery . No acute concerns OBJECTIVE Vital Signs Vital Signs Date Time Temp Pulse Resp B/P (MAP) Pulse Ox O2 Delivery O2 Flow Rate FiO2 12/01/21 11:39 Nasal Cannula 2.0 12/01/21 11:29 98.0 60 16 109/48 98 98.0 I & 0 Intake and Output 12/01/21 07:00 Intake Total 620 ml Output Total 1725 ml Balance -1105 ml Intake Oral 620 ml Output Urine Total 1725 ml PHYSICAL EXAM Physical Exam General: Alert, Oriented X3, Cooperative, No acute distress HEENT: Atraumatic, Mucous membr. moist/pink nECK sUPPLE Lungs: Clear to auscultation, Normal air movement Heart: SR Abdomen: Soft, No tenderness, Extremities: No cyanosis, No edema, severe arthritis Both Knee with swelling , chronic Skin: , No rash Neuro: Normal speech, grossly normal Psych/Mental Status: stable, cooperative Ostomy + DIAGNOSIS/ASSESSMENT Assessment & Plan ZACHARY - Dehydration /Vasomotor, At home on Entersto and Aldactone per med list from [place] , Held . Creat trending down . Maintain hydration . Strict I/O, Avoid nephrotoxins . Loopogram at [facility] earlier this week- per daughter probably normal . Still waiting for daughter to get the official report CKD stage 3 B/4 - Follows with Dr Joe, Refrigeration Engineering Teacher at [facility] .Obtained and reviewed records from [place] [employer]- recent appt Mid Oct , Cr baseline high 1.6 to .2.2, (recent eGFR 29ml) . Renal US 2018 -Cyst Lt Kidney Ur Alb/cr 400 . FU scheduled for 4 months Hx of Bladder cancer s/p Cystectomy December 2020- reviewed records. Has Urostomy. In remission. . Had Hematuria approx 2-[address] Joe's note . Follows with at [facility] ; Loopogram on 11/28 HTN Hypotensive since presentation Traumatic mechanical fall: no associated syncope/presyncopal symptoms- Left intertrochanteric femoral fracture- s/p treatment of intertrochanteric femoral fracture with intramedullary implant, with interlocking screws earlier today Anemia- Monitor , Hgb trending down . Recd PRBC. DM2 with distal polyneuropathy NICM: compensated AICD in situ: medtronic. SR with intermittent atrial pacing PAFIB: last dose of eliquis yesterday evening Hx of carotid artery disease and S/P bilateral CEA CBD use Heavy ETOH misuse: about 4 shots of tequila nightly using it for insomnia Hx of CHRISTY: does not use his CPAP Hx of CVA COMMENT/RELEVANT DATA Meds Current Medications Medications (Trade) Dose Ordered Sig/Molina Start Time Stop Time Status Last Admin Dose Admin Acetaminophen (Tylenol) 650 mg PRN QID PRN 11/30/21 10:45 Albumin Human 500 ml @ As Directed STK-MED ONCE 12/01/21 08:30 12/01/21 08:30 DC Albuterol Sulfate (Ventolin Neb Soln) 2.5 mg PRN QID PRN 11/30/21 11:45 Albuterol/ Ipratropium (Duoneb) 3 ml RTQID 11/29/21 16:00 11/30/21 20:43 3 ML Amiodarone HCl (Cordarone) 200 mg DAILY 11/30/21 11:00 Apixaban (Eliquis) 5 mg BID 12/02/21 09:00 Aspirin (Aspirin Chewable) 81 mg DAILY 12/02/21 09:00 Atenolol (Tenormin) 100 mg DAILY 11/30/21 12:00 Atorvastatin Calcium (Lipitor) 80 mg HS 11/30/21 21:00 11/30/21 21:27 80 MG Bisacodyl (Dulcolax Supp) 10 mg 1X PRN PRN 12/02/21 16:00 12/03/21 15:59 Budesonide (Pulmicort) 0.5 mg RTBID 11/30/21 20:00 11/30/21 20:43 0.5 MG Cefazolin Sodium (Ancef) 1 gm Q6H 12/01/21 14:00 12/02/21 02:01 Cefazolin Sodium/ Dextrose (Ancef 2gm Premix) 2 gm STK-MED ONCE 12/01/21 07:00 12/01/21 08:38 DC Cetirizine HCl (ZyrTEC) 10 mg DAILY 11/30/21 11:00 11/30/21 12:52 10 MG Chlordiazepoxide (Librium) 100 mg PRN Q1HR PRN 11/29/21 12:30 Dexamethasone Sodium Phosphate (Decadron) 4 mg STK-MED ONCE 12/01/21 06:48 12/01/21 06:48 DC Dextrose (Dextrose 50%-Water Syringe) 12.5 gm PRN Q15MIN PRN 12/01/21 12:45 UNV Dextrose (Iv Dextrose 5%) 250 ml PRN Q15MIN PRN 12/01/21 12:45 UNV Docusate Sodium (Colace) 100 mg BID 11/30/21 11:00 11/30/21 21:27 100 MG Famotidine (Pepcid Vial) 20 mg 1X ONCE 12/01/21 07:30 12/01/21 07:32 DC 12/01/21 07:30 20 MG Fentanyl Citrate (Fentanyl 2ml Vial) 50 mcg PRN Q1HR PRN 12/01/21 12:45 12/01/21 12:55 DC Fluticasone Propionate (Flonase) 2 spray DAILY 11/30/21 11:00 12/01/21 09:00 2 SPRAY Folic Acid (Folic Acid) 1 mg DAILY 12/04/21 09:00 Hydromorphone HCl (Dilaudid) 0.5 mg PRN Q10MIN PRN 12/01/21 06:00 12/01/21 20:00 Insulin Human Lispro (HumaLOG VIAL for OP,RR ONLY) 0-10 units PRN Q1HR PRN 12/01/21 10:45 12/02/21 10:44 Magnesium Hydroxide (Milk Of Magnesia) 2,400 mg 1X PRN PRN 12/02/21 06:00 12/03/21 05:59 Magnesium Sulfate 50 ml @ 25 mls/hr 1X ONCE 11/29/21 11:15 11/29/21 13:14 DC 11/29/21 12:40 25 MLS/HR Morphine Sulfate (Morphine Sulfate) 1 mg PRN Q10MIN PRN 12/01/21 06:00 12/01/21 20:00 Morphine Sulfate 5 mg/Ropivacaine 60 ml/Epinephrine HCl 0.5 mg/Sodium Chloride 100 ml @ 100 mls/hr 1X ONCE 12/01/21 07:30 12/01/21 08:29 DC 12/01/21 08:28 Multivitamins (Thera M Plus) 1 tab DAILY 12/04/21 09:00 Non-Formulary Medication (Albuterol Sulfate (Proair Respiclick)) 2 puff QID PRN 11/30/21 10:45 UNV Non-Formulary Medication (Budesonide/ Formoterol Fumarate (Symbicort 160-4.5 Mcg Inhaler)) 2 puff BID 11/30/21 21:00 UNV Non-Formulary Medication (Cannabidiol (Cbd) Extract (Epidiolex)) 50 mg HS 11/30/21 21:00 UNV Ondansetron HCl (Zofran) 4 mg PRN Q4HRS PRN 12/01/21 12:45 Oxycodone/ Acetaminophen (Percocet 5/325) i-ii po q4hrs prn pain PRN Q4HRS PRN 12/01/21 12:45 12/01/21 12:55 DC Pantoprazole Sodium (Protonix) 40 mg DAILYAC 11/30/21 11:30 11/30/21 12:52 40 MG Perflutren Protein Type A Microsphe (Optison) 0.66 mg STK-MED ONCE 11/29/21 13:30 11/29/21 13:30 DC Phenylephrine HCl (PHENYLEPHRINE in 0.9% NACL PF) 1 mg STK-MED ONCE 12/01/21 08:30 12/01/21 08:30 DC Polyethylene Glycol (miraLAX PACKET) 17 gm PRN DAILY PRN 12/01/21 12:45 Prochlorperazine Edisylate (Compazine) 5 mg PACU PRN PRN 12/01/21 06:00 12/01/21 20:00 Propofol (Diprivan) 200 mg STK-MED ONCE 12/01/21 06:44 12/01/21 06:45 DC Ringer's Solution 1,000 ml @ 30 mls/hr Q24H 12/01/21 06:00 12/01/21 17:59 Rocuronium [place] (Zemuron) 100 mg STK-MED ONCE 12/01/21 06:48 12/01/21 06:48 DC Sacubitril/ Valsartan (Entresto 49 Mg-51 Mg) 2 tab BID 11/30/21 11:00 11/30/21 11:40 DC Senna/Docusate Sodium (Senna Plus) 1 tab DAILY 12/02/21 09:00 Sodium Chloride 1,000 ml @ 0 mls/hr Q0M 12/01/21 08:00 12/01/21 07:58 50 MLS/HR Spironolactone (Aldactone) 12.5 mg DAILY 11/30/21 11:00 11/30/21 11:40 DC Sugammadex Sodium (Bridion) 200 mg STK-MED ONCE 12/01/21 09:00 12/01/21 13:31 DC Thiamine Mononitrate (Vitamin B-1) 100 mg DAILY 12/04/21 09:00 Vitamin D (Vitamin D3) 1,000 unit DAILY 11/30/21 11:00 11/30/21 12:50 1,000 UNIT Zinc Sulfate (Orazinc) 220 mg DAILY 11/30/21 11:00 11/30/21 12:50 220 MG Lab Laboratory Tests Test 11/30/21 15:48 11/30/21 16:53 11/30/21 19:51 12/01/21 04:55 Hemoglobin 7.9 g/dL (13.0-17.5) 7.3 g/dL (13.0-17.5) Glucose (Fingerstick) 177 mg/dL (70-99) 214 mg/dL (70-99) White Blood Count 7.7 x10^3/uL (4.0-11.0) Red Blood Count 2.18 x10^6/uL (4.30-5.70) Hematocrit 22.7 % (39.0-53.0) Mean Corpuscular Volume 104 fL (79-100) Mean Corpuscular Hemoglobin 33 pg (25-35) Mean Corpuscular Hemoglobin Concent 32 g/dL (31-37) Red Cell Distribution Width 13.4 % (11.5-14.5) Platelet Count 188 x10^3/uL (140-400) Neutrophils (%) (Auto) 80 % (31-73) Lymphocytes (%) (Auto) 8 % (24-48) Monocytes (%) (Auto) 8 % (0-9) Eosinophils (%) (Auto) 4 % (0-3) Basophils (%) (Auto) 1 % (0-3) Neutrophils # (Auto) 6.2 x10^3/uL (1.8-7.7) Lymphocytes # (Auto) 0.6 x10^3/uL (1.0-4.8) Monocytes # (Auto) 0.6 x10^3/uL (0.0-1.1) Eosinophils # (Auto) 0.3 x10^3/uL (0.0-0.7) Basophils # (Auto) 0.1 x10^3/uL (0.0-0.2) Sodium Level 138 mmol/L (136-145) Potassium Level 5.5 mmol/L (3.5-5.1) Chloride Level 106 mmol/L (98-107) Carbon Dioxide Level 21 mmol/L (21-32) Anion Gap 11 (6-14) Blood Urea Nitrogen 39 mg/dL (8-26) Creatinine 3.3 mg/dL (0.7-1.3) Estimated GFR (Cockcroft-Gault) 18.4 BUN/Creatinine Ratio 12 (6-20) Glucose Level 139 mg/dL (70-99) Calcium Level 8.5 mg/dL (8.5-10.1) Total Bilirubin 0.3 mg/dL (0.2-1.0) Aspartate Amino Transf (AST/SGOT) 17 U/L (15-37) Alanine Aminotransferase (ALT/SGPT) 16 U/L (16-63) Alkaline Phosphatase 88 U/L (46-116) Total Protein 5.6 g/dL (6.4-8.2) Albumin 2.3 g/dL (3.4-5.0) Albumin/Globulin Ratio 0.7 (1.0-1.7) Test 12/01/21 10:09 12/01/21 10:50 12/01/21 11:17 Glucose (Fingerstick) 211 mg/dL (70-99) 228 mg/dL (70-99) White Blood Count 13.4 x10^3/uL (4.0-11.0) Red Blood Count 2.38 x10^6/uL (4.30-5.70) Hemoglobin 7.5 g/dL (13.0-17.5) Hematocrit 23.8 % (39.0-53.0) Mean Corpuscular Volume 100 fL (79-100) Mean Corpuscular Hemoglobin 32 pg (25-35) Mean Corpuscular Hemoglobin Concent 32 g/dL (31-37) Red Cell Distribution Width 16.7 % (11.5-14.5) Platelet Count 183 x10^3/uL (140-400) Sodium Level 135 mmol/L (136-145) Potassium Level 5.1 mmol/L (3.5-5.1) Chloride Level 106 mmol/L (98-107) Carbon Dioxide Level 17 mmol/L (21-32) Anion Gap 12 (6-14) Blood Urea Nitrogen 35 mg/dL (8-26) Creatinine 2.9 mg/dL (0.7-1.3) Estimated GFR (Cockcroft-Gault) 21.3 Glucose Level 221 mg/dL (70-99) Calcium Level 8.2 mg/dL (8.5-10.1) Results All relevant outside records, renal labs, imaging studies, telemetry/EKG's were reviewed. Justicifation of Admission Dx: Justifications for Admission: Justification of Admission Dx: N/A ONOFRE SANCHEZ MD Dec 01, 2021 14:18
[2021-12-01] MEDS: oxyCODONE/APAP 5/325 1 TAB TABLET PO PRN (15:25)
[2021-12-01] MEDS: ceFAZolin SODIUM IV Push 1 GM VIAL. IVP SCH ×2 (15:27→21:03)
--- NOTE | 2021-12-01 18:39 | NUR ---
1 unit of PRBC's transfused, transfusion ended at 1814, vitals documented. Transfusion will not allow me to end it, notified blood bank.
[2021-12-01] MEDS ORDERED: traZODone 50 MG TABLET. PO SCH (21:00)
[2021-12-01] MEDS: ATORVASTATIN CALCIUM 40 MG TABLET. PO SCH (21:03)
--- NOTE | 2021-12-02 01:53 | NUR ---
Tele monitor reading asystole at 0115. Upon entering room, pt not breathing, no pulse. Spoke with , Homa at 0150 who will contact family.
[2021-12-02] MEDS ORDERED: MAGNESIUM HYDROXIDE 2,400 MG/30 ML ORAL.SUSP. PO PRN (06:00)
[2021-12-02] MEDS ORDERED: APIXABAN 5 MG TABLET. PO SCH (09:00)
[2021-12-02] MEDS ORDERED: ASPIRIN CHEWABLE 81 MG TABLET. PO SCH (09:00)
[2021-12-02] MEDS ORDERED: SENNOSIDES/DOCUSATE 8.6/50MG TABLET. PO SCH (09:00)
[2021-12-02] MEDS ORDERED: BISACODYL 10 MG SUPP.RECT. PR PRN (16:00)
--- NOTE | 2021-12-02 17:07 | PDOC ---
Provider Note Date of Service: DATE: 12/02/21 TIME: 12:30 PM Provider Note I came to make hospital rounds today at about noon. I was surprised that the patient was not on the inpatient rounding list. I called [facility] to ask why he wasnt on the list and was told that he had during the night. (I wasnt notified of this previously.) Im shocked, since the surgery went well, and I spoke to the patient in the PACU after surgery and he was doing fine. The postop hemoglobin was 7.5 and I gave a verbal order to the PACU nurse to transfuse an additional unit of PRBCs (he had received one unit as surgery was starting.) He apparently did receive the second unit of PRBCs. The last note from Dr. Almeida shows that he was doing well after surgery, and I believe his family spent time with him after surgery and there were no apparent ill effects to my knowledge. The [facility] nursing staff didnt have much additional information when I asked what happened today, other than he perhaps started having alcohol withdrawal symptoms such as seeing spiders at about 11 pm and that he at about 1 AM and the family was notified. I see from the notes that the family was at the bedside at about 3 AM. I wasnt aware of any of this until I made phone calls to find out why he wasnt listed on the census. I reviewed the chart, and I dont see much further information. Im still in shock, and I dont see any obvious reason for him to have passed. I called the number listed in the chart for his , although I believe it was a daughter to whom I spoke on the phone today. I expressed my condolences to her and to her family and expressed my shock and sorrow as well. I told them I would be happy to help or answer any questions. I called the Nursing Processing Archivist Opal who didn't know much either other than she got report that he . Michelle who was concrete paving supervisor at the time [facility] and I left a message with Opal for Michelle to call on my cell . Later Opal called me back and said they were going to get more information from Tessa the nurse caring for the patient. The only additional information was that the patient was found lying crosswise across his bed, and that he got very tachycardic right before he . Justifications for Admission Other Justification LE LR MD Dec 02, 2021 17:07
[2021-12-04] MEDS ORDERED: FOLIC ACID 1 MG TABLET. PO SCH (09:00)
[2021-12-04] MEDS ORDERED: MULTIVITAMIN with MINERAL TABLET. PO SCH (09:00)
[2021-12-04] MEDS ORDERED: THIAMINE 100 MG TABLET. PO SCH (09:00)
--- NOTE | 2021-12-07 10:49 | DS ---
DATE OF DISCHARGE: 12/02/2021 DISCHARGE SUMMARY HOSPITAL COURSE: The patient is a 76-year-old male patient who presented to the Emergency Room of [facility] with mechanical fall. The patient stated that he was getting into his pajamas and fell on the left side, developed severe pain in his left hip joint and could not put any weight on it as it was too painful. He is normally followed at the [place] and has also a geotechnician that he does see on a regular basis at the [facility]. He was extensively investigated in the Emergency Room and has lab work as well as imaging studies. His lab work showed that he has normochromic normocytic anemia. His chemistry showed that his BUN is 35, creatinine 2.1 and his prothrombin time and INR as well as APTT are all within normal range. Urinalysis was essentially unremarkable except for 20-40 wbc's, moderate amount of leukocyte esterase and many bacteria. Toxic screen was positive for cannabinoids and ethyl alcohol. His imaging studies showed that the patient has a CT scan of the pelvis showing that the patient has acute intertrochanteric fracture of the left femur with mild displacement and comminution. He does have degenerative changes without acute finding in the lumbar spine. His CT scan of the lumbar spine were unremarkable and his chest x-ray showed no acute cardiopulmonary process. The patient was transferred to [facility] to consult the orthopedic surgeon as well as winch truck operator and geotechnician given that he has acute on chronic kidney injury and he is known to have nonischemic cardiomyopathy with a very low ejection fraction, for which he has AICD. He was in fact seen by the educational institution curator as he has also obstructive sleep apnea and the geotechnician together with the winch truck operator. His Entresto and spironolactone were discontinued and he was seen by the orthopedic surgeon and once medically stabilized, the patient was taken to OR and underwent left hip treatment of intertrochanteric femur fracture with intramedullary implant with interlocking screws. Postoperatively, the patient was stable. His potassium was slightly high at 5.5. However, postoperatively, his potassium was only 5.1 and his H and H was stable and did receive 1 unit of packed RBCs and the patient has remained stable; however, the patient is actually DNR/DNI. The nursing staff noted that the tele monitor was reading asystole and when the patient was examined, there was no spontaneous breathing, no palpable pulses or audible heart sounds. The patient was pronounced around 1:50 p.m. on 12/02/2021. The cause of is cardiopulmonary arrest, probably acute on chronic systolic congestive heart failure, acute kidney injury, nonischemic cardiomyopathy with poor ejection fraction, for which he had an AICD. OPHELIA DR: Babs TID: [id number]
== END 2021-12-02 01:20 | DRG 480 ==
LOC: 5 NORTH 03:55
PROVIDERS: ADMIT Internal Medicine; ATTEND Internal Medicine
PROC: 30233N1 Transfusion of Nonautologous Red Blood Cells into Peripheral Vein, Percutaneous Approach (ICD-10-PCS; 2021-12-01)
PROC: 0QS706Z Reposition Left Upper Femur with Intramedullary Internal Fixation Device, Open Approach (ICD-10-PCS; principal; 2021-12-01 07:30)
DX: S72.142A Displaced intertrochanteric fracture of left femur, initial encounter for closed fracture (principal); N17.0 Acute kidney failure with tubular necrosis; I50.23 Acute on chronic systolic (congestive) heart failure; I13.0 Hypertensive heart and chronic kidney disease with heart failure and stage 1 through stage 4 chronic kidney disease, or unspecified chronic kidney disease; D62 Acute posthemorrhagic anemia; N18.4 Chronic kidney disease, stage 4 (severe); I50.32 Chronic diastolic (congestive) heart failure; I42.8 Other cardiomyopathies; E11.22 Type 2 diabetes mellitus with diabetic chronic kidney disease; E11.42 Type 2 diabetes mellitus with diabetic polyneuropathy; E78.5 Hyperlipidemia, unspecified; F17.210 Nicotine dependence, cigarettes, uncomplicated; G47.00 Insomnia, unspecified; G47.33 Obstructive sleep apnea (adult) (pediatric); I48.0 Paroxysmal atrial fibrillation; J44.9 Chronic obstructive pulmonary disease, unspecified; M17.32 Unilateral post-traumatic osteoarthritis, left knee; M19.079 Primary osteoarthritis, unspecified ankle and foot; Z79.01 Long term (current) use of anticoagulants; Z80.41 Family history of malignant neoplasm of ovary; Z85.51 Personal history of malignant neoplasm of bladder; Z86.73 Personal history of transient ischemic attack (TIA), and cerebral infarction without residual deficits; Z90.6 Acquired absence of other parts of urinary tract; Z91.19 Patient's noncompliance with other medical treatment and regimen; Z93.6 Other artificial openings of urinary tract status; Z95.810 Presence of automatic (implantable) cardiac defibrillator; W18.39XA Other fall on same level, initial encounter; Y93.89 Activity, other specified; Y92.89 Other specified places as the place of occurrence of the external cause; Y99.8 Other external cause status; I95.9 Hypotension, unspecified; Z66 Do not resuscitate; I46.9 Cardiac arrest, cause unspecified
CPT/HCPCS: 36415; 36430; 73560; 76000; 80048; 80053; 80069; 82306; 82550; 82962; 83605; 83735; 83880; 84443; 85018; 85025; 85027; 86850; 86900; 86901; 86920; 94640; 94760; A4213; A4930; A6223; A6253; A6402; C1713; C1769; C8929; J0171; J0690; J1100; J2270; J2370; J2405; J2704; J2795; J3010; J3475; J3490; J7030; P9016; P9045; Q9956; G0378; J7626